=== PATIENT | female | born 1945 | race Caucasian/White ===

== ENCOUNTER 2019-06-12 13:41 | Outpatient (CLI) | payer MEDICARE, SELFPAY ==
--- NOTE | ~2019-06-12 | US_ITS ---
EXAMINATION: US renal BI EXAM DATE: 06/12/2019 14:50 INDICATION: Renal cancer 2014. Left nephrectomy. TECHNIQUE: Multiple grayscale and Doppler images of the kidneys were obtained (by a technologist who performed the scan) and subsequently reviewed. There is no prior study for comparison. FINDINGS: Right kidney: There is normal contour and echogenicity. It measures 9.6 x 4.5 x 5.0 centimeters. Th ere are no focal renal lesions identified. There is no hydronephrosis. Left kidney: Left renal fossa is unremarkable. Spleen normal in size.. Bladder unremarkable. IMPRESSION: 1. Unremarkable right kidney and bladder. 2. Unremarkable left renal fossa. Reviewed, dictated and finalized at location B. SEARCH SPECIALIST
== END 2019-06-12 13:42 | disposition home or self-care (01) ==
LOC: ANHIMG 13:43
PROVIDERS: PCP Internal Medicine; Visit Provider Internal Medicine
DX: R10.9 Unspecified abdominal pain (principal); R30.0 Dysuria
CPT/HCPCS: 76775

== ENCOUNTER 2019-06-17 08:57 | Outpatient (CLI) | payer MEDICARE, SELFPAY ==
--- NOTE | ~2019-06-17 | CT_ITS ---
EXAMINATION: CT abdomen pelvis w con DATE: 06/17/2019 09:35 INDICATION: Left renal cancer TECHNIQUE: Computed tomography (CT) of the abdomen and pelvis was performed with 100 cc Omnipaque 350 intravenous contrast. The dose-length product was 196.68 mGy-cm. Automated exposure control and iter ative reconstruction technique were employed. COMPARISON: CT dated 02/10/2018 FINDINGS: Lung bases are unremarkable. No pleural or pericardial effusion. Heart size normal. No sign ificant vascular abnormality. Moderate size hiatal hernia. No lymphadenopathy. The liver, spleen, pancreas, adrenal glands and right kidney are unremarkable. Status post left nephr ectomy. There is a small accessory splenule. Gallbladder is present. Nonobstructive bowel gas pattern . Moderate colonic fecal loading. Status post hysterectomy. No abnormal pelvic masses or fluid collec tions. Bladder is unremarkable. No osteolytic or osteoblastic lesions. There is degenerative retrolis thesis at L1-2. No acute osseous abnormality. IMPRESSION: 1. No acute abdominal abnormality. No evidence for metastatic disease. 2: Moderate sized hiatal hernia. Reviewed, dictated and finalized at location A. ICK BUILDER
--- NOTE | ~2019-06-17 | XR_ITS ---
EXAMINATION: XR chest 2V 06/17/2019 09:14 INDICATION: Ligament neoplasm of the left kidney PROCEDURE: 2 view chest COMPARISON: Comparison to multiple prior studies sequentially, with oldest reviewed study dated 01/23. FINDINGS: The lungs are clear. The cardiomediastinal silhouette is within normal limits. There are no pleural effusions. There is no pneumothorax suspected. IMPRESSION: 1: NO ACUTE CARDIOPULMONARY DISEASE. Reviewed, dictated and finalized at location A. R HEAD PEGGER
[2019-06-17 09:23] LABS: Blood Urea Nitrogen 18 mg/dL (8-26); Estimated Glomerular Filt Rate 44
== END 2019-06-17 08:58 | disposition home or self-care (01) ==
LOC: ANHIMG 08:59
PROVIDERS: PCP Internal Medicine; Visit Provider Urology
DX: C64.2 Malignant neoplasm of left kidney, except renal pelvis (principal); K44.9 Diaphragmatic hernia without obstruction or gangrene
CPT/HCPCS: 71046; 74177; Q9967

== ENCOUNTER 2020-01-14 01:34 | Outpatient (CLI) | payer MEDICARE, SELFPAY ==
[2020-01-14 16:17] LABS: SARS-CoV-2 RNA PCR Negative
== END 2020-01-14 01:35 | disposition home or self-care (01) ==
LOC: ANHCOVIDDT 01:34
PROVIDERS: PCP Internal Medicine; Visit Provider Internal Medicine Gastroenterology
DX: Z01.812 Encounter for preprocedural laboratory examination (principal); Z20.828 Contact with and (suspected) exposure to other viral communicable diseases
CPT/HCPCS: 87635; C9803; U0003

== ENCOUNTER 2020-01-16 00:22 | Day surgery (SDC) | payer MEDICARE, SELFPAY ==
[2020-01-09 10:07] VITALS: BMI 21.9
--- NOTE | 2020-01-16 07:17 | P.HP_ITS ---
History of Present Illness History of Present Illness Consent: Risks, benefits, and alternatives have been discussed and questions answered. Patient agrees to proceed with procedure. Chief complaint: Vomitting Narrative: Tara Mederos is a 74 year old W female referred for gastroscopy with possible esophageal dilatation secondary to intermittent dysphagia primarily with solid foods nausea occasional vomiting. She also has some regurgitation. These have been chronic symptoms. She has had esophageal dilatation in the past. Her last gastroscopy was 2 years ago but no dilatation at that time. She has had no associated weight loss. No fever chills or sweats. She is on no anticoagulation. Patient also had a colonoscopy 2 years ago small benign adenomatous polyp was removed. [facility] Family History Family History Mother Family history of Alzheimer's disease Father Family history of emphysema Family history of congestive heart failure Family history of heart disease in male family member before age 55 Patient's father is Asthma, Onset Age: 82 Sibling Patient's sister is in good health Other Family history of malignant neoplasm of breast Hypertension Social History Social History Smoking status: Never smoker Second hand tobacco smoke exposure: No Alcohol intake: current Substance use: never Meds Home Medications and Allergies Home Medications Medication Instructions Recorded Confirmed Type fluticasone propionate 50 2 spray NASAL DAILY #18.2 ml 09/30/19 01/09/20 Rx mcg/actuation nasal spray,suspension albuterol sulfate 90 mcg/actuation 1 inhalation INHALATION Q4-6H PRN 11/07/19 01/09/20 Rx aerosol inhaler #8.5 gm pantoprazole 40 mg tablet,delayed 40 mg PO QAM #90 tablet 12/06/19 01/09/20 Rx release budesonide-formoterol [Symbicort] 2 puff INHALATION Q12H PRN 01/09/20 01/09/20 History Allergies Allergy/AdvReac Type Severity Reaction Status Date / Time No Known Allergies Allergy Verified 01/09/20 10:05 Exam Const: Orientation/consciousness: patient oriented x3 Resp: Auscultation: clear to auscultation bilaterally Cardio: Rate: regular rate Rhythm: regular rhythm Heart sounds: no murmurs GI: GI Palp: Yes Soft to palpation, No Tenderness to palpation present (GI), Yes No hepatosplenomegaly present and No Palpable mass present Auscultation: normal bowel sounds Neuro: General: patient oriented x3 and no focal motor deficits Extrem: General: no pedal edema Assessment and Plan Additional Plan EGD possible esophageal dilatation for evaluation of dysphagia intermittent nausea vomiting
[2020-01-16] MEDS: LACTATED RINGERS 1,000 ML 30 ML IV CONT (07:18)
[2020-01-16] MEDS: ONDANSETRON INJ 4 MG/2 ML VIAL IV PUSH (07:24)
[2020-01-16 07:26] VITALS: BP 120/73; PULSE 81; RESP 18; TEMP 37.2; O2SAT 100
--- NOTE | 2020-01-16 07:30 | WPDANESEPPF ---
Anes - Initial Pre Proc Eval Procedure: Operation Date: 01/16/20 08:00 Proposed Procedures p Esophagogastroduodenoscopy - Nuno Gagnon MD Date/Time: 01/16/20 07:30 Surgeon: Nuno Gagnon MD Pre Op Diagnosis: Vomitting Patient Data Age: 74 Gender: F Height: 5 ft 2 in Weight: 54.5 kg Allergies Allergy/AdvReac Type Severity Reaction Status Date / Time No Known Allergies Allergy Verified 01/16/20 07:25 Home Medications Medication Instructions Recorded Confirmed Type fluticasone propionate 50 2 spray NASAL DAILY #18.2 ml 09/30/19 01/16/20 Rx mcg/actuation nasal spray,suspension albuterol sulfate 90 mcg/actuation 1 inhalation INHALATION Q4-6H PRN 11/07/19 01/16/20 Rx aerosol inhaler #8.5 gm pantoprazole 40 mg tablet,delayed 40 mg PO QAM #90 tablet 12/06/19 01/16/20 Rx release budesonide-formoterol [Symbicort] 2 puff INHALATION Q12H PRN 01/09/20 01/16/20 History Patient hx anesthesia problems: none Family hx anesthesia problems: none PMFSH Past Medical History Medical History (Updated 01/16/20 @ 07:32 by Trung Tillman MD) Anxiety disorder, unspecified Asthma GERD (gastroesophageal reflux disease) Hx of renal cell cancer SOHA (obstructive sleep apnea) Family History Family History Mother Family history of Alzheimer's disease Father Family history of emphysema Family history of congestive heart failure Family history of heart disease in male family member before age 55 Patient's father is Asthma, Onset Age: 82 Sibling Patient's sister is in good health Other Family history of malignant neoplasm of breast Hypertension Social History Social History Smoking status: Never smoker Second hand tobacco smoke exposure: No Alcohol intake: current Substance use: never Anes - Eval Final PreProcedure Day of Procedure 01/16/20 07:30 Patient weight: normal Heart: regular rate and rhythm Lungs: clear to auscultation Airway: Mallampati scale class II Neurological: alert and oriented Last oral intake: >/= 8 hours ASA classification: III Emergent: no Anesthetic plan: proceed Anesthesia type and monitoring: general GIVS and standard monitoring Informed Consent: The patient's anesthetic plan and its attendant risks and benefits were discussed with the patient/family/POA. Questions were solicited and answers provided to the satisfaction of the patient/family/POA.
--- NOTE | 2020-01-16 07:31 | SUR.PREOP ---
IV CHARTED WRONG SITE RIGHT HAND, INSERTED R-FOREARM
[2020-01-16 08:10] VITALS: BP 93/60; PULSE 81; RESP 26; O2SAT 96
[2020-01-16 08:20] VITALS: BP 106/73; PULSE 75; RESP 23; O2SAT 100
[2020-01-16 08:30] VITALS: BP 122/99; PULSE 67; RESP 18; O2SAT 100
== END 2020-01-16 08:53 | disposition home or self-care (01) ==
PROVIDERS: PCP Internal Medicine; Visit Provider Internal Medicine Gastroenterology
PROC: 0DJ08ZZ Inspection of Upper Intestinal Tract, Via Natural or Artificial Opening Endoscopic (ICD-10-PCS; CPT 43235; principal; 2020-01-16 08:00)
DX: K22.2 Esophageal obstruction (principal); K44.9 Diaphragmatic hernia without obstruction or gangrene; K21.9 Gastro-esophageal reflux disease without esophagitis; G47.33 Obstructive sleep apnea (adult) (pediatric); J45.909 Unspecified asthma, uncomplicated; F41.9 Anxiety disorder, unspecified
CPT/HCPCS: 43249; 43239; 87081; 88305; C1726; J2405; J7120

== ENCOUNTER 2020-06-06 12:31 | Outpatient (CLI) | payer MEDICARE, SELFPAY ==
--- NOTE | ~2020-06-06 | US_ITS ---
EXAMINATION: US carotid duplex BI EXAM DATE: 06/06/2020 13:01 INDICATION: R42 - Dizziness and giddiness dizziness. TECHNIQUE: Grayscale, color and pulsed Doppler images of the cervical carotid arteries were obtained . The degree of vessel stenosis is placed in one of the following categories: normal, <50% stenosis, 50-69% stenosis, >=70% stenosis but less than near-occlusion, near-occlusion, or occlusion. Note that percent stenosis relative to normal distal artery lumen diameter is indirectly measured from velocit y measurements as described by Yaw, et al. Radiology 2003; 229:340-346. There is no prior study fo r comparison. FINDINGS: RIGHT SIDE: Right common carotid artery peak systolic velocity (PSV in cm/s): 57 Right bulb/internal carotid artery peak systolic velocity (PSV in cm/s): 45 Right internal carotid artery end diastolic velocity (EDV in cm/s): 23 Right ICA/CCA peak systolic ratio: 0.8 Right external carotid artery peak systolic velocity (PSV in cm/s): 61 Right vertebral artery antegrade flow: yes There is minimal carotid bulb plaque. Velocity and Doppler waveforms in the common and internal carotid arteries is normal. LEFT SIDE: Left common carotid artery peak systolic velocity (PSV in cm/s): 78 Left bulb/internal carotid artery peak systolic velocity (PSV in cm/s): 73 Left internal carotid artery end diastolic velocity (EDV in cm/s): 33 Left ICA/CCA peak systolic ratio: 0.4 Left external carotid artery peak systolic velocity (PSV in cm/s): 36 Left vertebral artery antegrade flow: yes There is no focal plaque identified. IMPRESSION: 1. Less than 50 percent stenosis in the right internal carotid artery. 2. Normal left internal carotid artery. Reviewed, dictated and finalized at location A. ITE WORKER
== END 2020-06-06 12:32 | disposition home or self-care (01) ==
PROVIDERS: Family Provider Internal Medicine; PCP Internal Medicine; Visit Provider Internal Medicine
DX: R42 Dizziness and giddiness (principal); I65.21 Occlusion and stenosis of right carotid artery
CPT/HCPCS: 93880

== ENCOUNTER 2020-06-09 10:30 | Outpatient (CLI) | payer MEDICARE, SELFPAY ==
--- NOTE | ~2020-06-09 | XR_ITS ---
EXAMINATION: XR chest 2V EXAM DATE: 06/09/2020 11:02 INDICATION: Malignant neoplasm of LT kidney, except renal pelvis. TECHNIQUE: Frontal and lateral projections of the chest obtained and reviewed. Comparison is made to prior examination from 06/17/2019. FINDINGS: Moderate to severe chronic hyperinflation. No confluent consolidation, pneumothorax or ple ural effusion suspected. Cardiomediastinal silhouette is normal. There are no osteoblastic or osteoly tic lesions identified. Several retroperitoneal surgical clips. IMPRESSION: Hyperinflation. Reviewed, dictated and finalized at location A. E MAKER IMPRESSION: Hyperinflation.
--- NOTE | ~2020-06-09 | CT_ITS ---
EXAMINATION: CT abdomen pelvis wo/w con DATE: 06/09/2020 11:18 INDICATION: Malignant neoplasm of the left kidney. TECHNIQUE: Computed tomography (CT) of the abdomen and pelvis was performed without and with 100 mL O mnipaque-350 intravenous contrast utilizing a standard renal mass protocol. Automated exposure contro l and iterative reconstruction technique were employed. The dose-length product was 363.65 mGy-cm. COMPARISON: 06/17/2019 FINDINGS: Unchanged likely benign 4-5 mm subpleural nodule in the left lower lobe. Heart size is normal. No per icardial or pleural effusion. Moderate-sized sliding-type hiatal hernia. Liver, gallbladder, pancreas and bilateral adrenal glands are normal. Splenic calcifications consistent with old granulomatous di sease. Unchanged small splenule along the posterior medial margin of the spleen which can be seen lauren ing back to 02/27/2015 and slightly more posterior position prior to the left nephrectomy on study da yash 09/04/2008. Right kidney is normal with no urolithiasis or hydronephrosis. Status post left nephre ctomy with no evident residual/recurrent neoplasm. There is possible wall thickening along the sigmoi d colon although appearance may be artifact of decompressed state. No bowel obstruction. Bladder is n ormal. The uterus is not identified and has likely been surgically resected. No free intraperitoneal gas or fluid. No pathologically enlarged abdominal or pelvic lymphadenopathy. Mild lumbar spondylosis . IMPRESSION: 1. Status post left nephrectomy. No evident residual, recurrent or metastatic disease. 2. Moderate-sized sliding-type hiatal hernia. 3. Possible wall thickening in the sigmoid colon. This could be artifactual appearance due to decompr essed state although could not exclude a distal colitis which could be infectious, inflammatory or le ss likely ischemic in etiology. Reviewed, dictated and finalized at location B. T WORKER IMPRESSION: 1. Status post left nephrectomy. No evident residual, recurrent or metastatic d isease. 2. Moderate-sized sliding-type hiatal hernia. 3. Possible wall thickening in the sigmoid colon. This could be artifactual deny earance due to decompressed state although could not exclude a distal colitis w hich could be infectious, inflammatory or less likely ischemic in etiology.
[2020-06-09 11:12] LABS: Estimated Glomerular Filt Rate 49
== END 2020-06-09 10:31 | disposition home or self-care (01) ==
PROVIDERS: Family Provider Internal Medicine; PCP Internal Medicine; Visit Provider Urology
DX: C64.2 Malignant neoplasm of left kidney, except renal pelvis (principal); R35.1 Nocturia; K44.9 Diaphragmatic hernia without obstruction or gangrene
CPT/HCPCS: 71046; 74178; Q9967

== ENCOUNTER → 2020-07-12 02:44 | Outpatient (CLI) | payer MEDICARE, SELFPAY ==
[2020-07-12 19:42] LABS: SARS-CoV-2 RNA PCR Negative
== END ==
PROVIDERS: PCP Internal Medicine; Visit Provider Internal Medicine Gastroenterology
DX: Z01.812 Encounter for preprocedural laboratory examination (principal); Z20.822 Contact with and (suspected) exposure to COVID-19
CPT/HCPCS: C9803; U0003; U0005

== ENCOUNTER 2020-07-15 02:44 | Day surgery (SDC) | payer MEDICARE, SELFPAY ==
[2020-07-07 13:59] VITALS: BMI 23.1
[2020-07-15 07:20] VITALS: BP 126/76; PULSE 81; RESP 16; TEMP 36.6; O2SAT 100; BMI 22.3
[2020-07-15] MEDS: LACTATED RINGERS 1,000 ML 150 ML IV CONT (07:46)
--- NOTE | 2020-07-15 07:48 | PM.HPGS ---
History of Present Illness History of Present Illness Consent: Risks, benefits, and alternatives have been discussed and questions answered. Patient agrees to proceed with procedure. Chief complaint: gastroenteritis Narrative: Tara Mederos is a 75 year old female With an abnormal CT scan suggestive of colitis. She has had a change in bowel habits. For the past several months she has discomfort with bowel movements and frequent loose stools. PMFSH Past Medical History Medical History Anxiety disorder, unspecified Asthma GERD (gastroesophageal reflux disease) Hx of renal cell cancer SOHA (obstructive sleep apnea) Family History Family History Mother Family history of Alzheimer's disease Father Family history of emphysema Family history of congestive heart failure Family history of heart disease in male family member before age 55 Patient's father is Asthma, Onset Age: 82 Sibling Lung cancer Other Family history of malignant neoplasm of breast Hypertension Social History Social History Smoking status: Never smoker Second hand tobacco smoke exposure: No Alcohol intake: current Drinks per week: 2 Substance use: never Substance use type: does not use Living arrangements: alone Spiritual care concerns: No Meds Home Medications and Allergies Home Medications Medication Instructions Recorded Confirmed Type fluticasone propionate 50 2 spray NASAL DAILY #18.2 ml 09/30/19 07/07/20 Rx mcg/actuation nasal spray,suspension albuterol sulfate 90 mcg/actuation 1 inhalation INHALATION Q4-6H PRN 11/07/19 07/07/20 Rx aerosol inhaler #8.5 gm pantoprazole 40 mg tablet,delayed 40 mg PO QAM #90 tablet 12/06/19 07/07/20 Rx release budesonide-formoterol [Symbicort] 2 puff INHALATION Q12H PRN 01/09/20 07/07/20 History lorazepam 0.5 mg tablet 0.5 mg PO BID PRN #30 tablet 06/13/20 07/07/20 Rx sodium,potassium,mag sulfates 17.5 See Rx Instructions PO .COMPLEX 07/04/20 07/07/20 Rx gram-3.13 gram-1.6 gram oral soln #354 ml citalopram [Celexa] 10 mg PO DAILY 07/07/20 07/07/20 History triamcinolone acetonide [Triderm] 1 applic TOPICAL BID 07/07/20 07/07/20 History Allergies Allergy/AdvReac Type Severity Reaction Status Date / Time No Known Allergies Allergy Verified 07/15/20 07:31 Vital Signs Vital Signs - 24 hr 07/15/20 07:20 Temperature 36.6 C Pulse Rate 81 Respiratory Rate 16 Blood Pressure 126/76 Pulse Oximetry 100 Exam Resp: Auscultation: clear to auscultation bilaterally Cardio: Rate: regular rate Rhythm: regular rhythm GI: GI Palp: Yes Soft to palpation and No Tenderness to palpation present (GI) Assessment and Plan Assessment and plan (1) Change in bowel habits: Code(s): R19.4 - Change in bowel habit Status: Acute Assessment and Plan: Colonoscopy with possible biopsy or polypectomy or cautery or injection of substances.
--- NOTE | 2020-07-15 08:11 | WPDANESEPPF ---
Anes - Initial Pre Proc Eval Procedure: Operation Date: 07/15/20 08:30 Proposed Procedures p Colonoscopy - Jacinto Jacobsen MD Date/Time: 07/15/20 08:11 Surgeon: Jacinto Jacobsen MD Pre Op Diagnosis: gastroenteritis Patient Data Age: 75 Gender: F Height: 5 ft Weight: 51.8 kg Last Vital Signs Temp 98 F 07/15/20 07:20 Pulse 81 07/15/20 07:20 Resp 16 07/15/20 07:20 BP 126/76 07/15/20 07:20 Pulse Ox 100 07/15/20 07:20 Allergies Allergy/AdvReac Type Severity Reaction Status Date / Time No Known Allergies Allergy Verified 07/15/20 07:31 Home Medications Medication Instructions Recorded Confirmed Type fluticasone propionate 50 2 spray NASAL DAILY #18.2 ml 09/30/19 07/07/20 Rx mcg/actuation nasal spray,suspension albuterol sulfate 90 mcg/actuation 1 inhalation INHALATION Q4-6H PRN 11/07/19 07/07/20 Rx aerosol inhaler #8.5 gm pantoprazole 40 mg tablet,delayed 40 mg PO QAM #90 tablet 12/06/19 07/07/20 Rx release budesonide-formoterol [Symbicort] 2 puff INHALATION Q12H PRN 01/09/20 07/07/20 History lorazepam 0.5 mg tablet 0.5 mg PO BID PRN #30 tablet 06/13/20 07/07/20 Rx sodium,potassium,mag sulfates 17.5 See Rx Instructions PO .COMPLEX 07/04/20 07/07/20 Rx gram-3.13 gram-1.6 gram oral soln #354 ml citalopram [Celexa] 10 mg PO DAILY 07/07/20 07/07/20 History triamcinolone acetonide [Triderm] 1 applic TOPICAL BID 07/07/20 07/07/20 History Patient hx anesthesia problems: none Family hx anesthesia problems: none PMFSH Past Medical History Medical History Anxiety disorder, unspecified Asthma GERD (gastroesophageal reflux disease) Hx of renal cell cancer SOHA (obstructive sleep apnea) Family History Family History Mother Family history of Alzheimer's disease Father Family history of emphysema Family history of congestive heart failure Family history of heart disease in male family member before age 55 Patient's father is Asthma, Onset Age: 82 Sibling Lung cancer Other Family history of malignant neoplasm of breast Hypertension Social History Social History Smoking status: Never smoker Second hand tobacco smoke exposure: No Alcohol intake: current Drinks per week: 2 Substance use: never Substance use type: does not use Living arrangements: alone Spiritual care concerns: No Anes - Eval Final PreProcedure Day of Procedure 07/15/20 08:11 Patient weight: normal Heart: regular rate and rhythm Lungs: clear to auscultation Airway: Mallampati scale class II Neurological: alert and oriented Last oral intake: >/= 8 hours ASA classification: III Emergent: no Anesthetic plan: proceed Anesthesia type and monitoring: general GIVS and standard monitoring Informed Consent: The patient's anesthetic plan and its attendant risks and benefits were discussed with the patient/family/POA. Questions were solicited and answers provided to the satisfaction of the patient/family/POA.
[2020-07-15 09:44] VITALS: BP 90/59; PULSE 80; RESP 19; O2SAT 100
[2020-07-15 09:54] VITALS: BP 92/54; PULSE 87; RESP 22; O2SAT 99
[2020-07-15 10:04] VITALS: BP 101/69; PULSE 76; RESP 19; O2SAT 99
== END 2020-07-15 09:25 | disposition home or self-care (01) ==
PROVIDERS: PCP Internal Medicine; Visit Provider Internal Medicine Gastroenterology
PROC: 0DJD8ZZ Inspection of Lower Intestinal Tract, Via Natural or Artificial Opening Endoscopic (ICD-10-PCS; CPT 45378; principal; 2020-07-15 08:30)
DX: R19.4 Change in bowel habit (principal); R93.3 Abnormal findings on diagnostic imaging of other parts of digestive tract; J45.909 Unspecified asthma, uncomplicated; G47.33 Obstructive sleep apnea (adult) (pediatric); K21.9 Gastro-esophageal reflux disease without esophagitis; F41.9 Anxiety disorder, unspecified; Z85.528 Personal history of other malignant neoplasm of kidney
CPT/HCPCS: 45378; C9803; J2704; J7120; U0003; U0005

== ENCOUNTER 2020-07-28 14:14 | Outpatient (CLI) | payer MEDICARE, SELFPAY | END 2020-07-28 14:15 | disposition home or self-care (01) | LOC: ANHCOVIDVC 14:15 | PROVIDERS: PCP Internal Medicine | DX: Z23 Encounter for immunization (principal) | CPT/HCPCS: 0001A; 91300 ==

== ENCOUNTER 2020-08-18 14:14 | Outpatient (CLI) | payer MEDICARE, SELFPAY | END 2020-08-18 14:15 | disposition home or self-care (01) | LOC: ANHCOVIDVC 14:14 | PROVIDERS: PCP Internal Medicine | DX: Z23 Encounter for immunization (principal) | CPT/HCPCS: 0002A; 91300 ==

== ENCOUNTER 2020-11-17 14:41 | Emergency (ER) | payer MEDICARE, SELFPAY ==
[2020-11-17 14:45] VITALS: BP 113/80; PULSE 101; RESP 17; TEMP 36.3; O2SAT 99
--- NOTE | 2020-11-17 15:15 | ED.URI ---
HPI - URI/Sore Throat General Chief Complaint: Upper Respiratory Infection Stated Complaint: sinus infection Time Seen by Provider: 11/17/20 15:16 Source: patient Mode of arrival: ambulatory Limitations: no limitations History of Present Illness HPI Narrative: Tara Mederos is a 75 yo female with prior medical history of new onset COPD, severe GERD, sleep apnea, who comes with severe sinus congestion and complaining of headache x 6 days.. She reports having a temperature of 100.2 on Tuesday and not feeling very well yesterday says she is feeling a little better today as she still has burning and congestion in her frontal and ethmoid sinuses. She also has a dry cough; discussed whether the cough was a result of her sinuses or because of her GERD as she states that her Protonix does not control her GERD very well. She has used [id number] NyQuil to help her sleep at night. She is supposed to be using CPAP also She has been prescribed Symbicort because of low PFTs which she is not taking; she also does not use albuterol inhalers Related Data Home Medications Medication Instructions Recorded Confirmed triamcinolone acetonide [Triderm] 1 applic TOPICAL BID 07/07/20 11/17/20 Allergies Allergy/AdvReac Type Severity Reaction Status Date / Time No Known Allergies Allergy Verified 11/17/20 14:46 Review of Systems Review of Systems: Narrative: CONSTITUTIONAL: Denies fever, chills, sweats. EYES: Denies visual changes, redness, discharge. ENT: Denies rhinorrhea, has congestion, sinus pain ,sore throat, otalgia. CARDIOVASCULAR: Denies chest pain, palpitations, edema. RESPIRATORY: Denies dyspnea, wheezing, cough GASTROINTESTINAL: Denies abdominal pain, nausea, vomiting, diarrhea. GENITOURINARY: Denies dysuria, hematuria, abnormal discharge SKIN: Denies rash or itching. NEUROLOGIC: Denies numbness, or focal weakness. PSYCHIATRIC: Denies anxiety or depression. [facility] Past Medical History Medical History Anxiety disorder, unspecified Asthma GERD (gastroesophageal reflux disease) Hx of renal cell cancer SOHA (obstructive sleep apnea) Family History Family History Mother Family history of Alzheimer's disease Father Family history of emphysema Family history of congestive heart failure Family history of heart disease in male family member before age 55 Patient's father is Asthma, Onset Age: 82 Sibling Lung cancer Other Family history of malignant neoplasm of breast Hypertension Social History Social History Smoking status: Never smoker Second hand tobacco smoke exposure: No Alcohol intake: current Drinks per week: 2 Substance use: never Substance use type: does not use Gender identity (if verbalized by the patient): Female Spiritual care concerns: No Comments At time of signature, I agree with nursing past medical, surgical, social and family history. There is no relevant family history pertinent to the presenting complaint. Exam Narrative: Exam Narrative: GENERAL: This is a well-nourished, well-developed patient, in mild distress. HEAD: normocephalic, atraumatic. EYES: Sclera clear/white. Vision is grossly intact. EARS: External ears normal, auditory canals clear and without drainage, TMs normal without perforation. Hearing grossly intact. NOSE: External nose normal without nasal discharge, nares with redness, no rhinorrhea. THROAT: Mucous membranes moist, posterior pharynx mild erythema NECK: Neck supple, non-tender CARDIOVASCULAR: Regular rate and rhythm without murmurs, gallops, or rubs. RESPIRATORY: Clear to auscultation. Breath sounds equal bilaterally. No wheezes, rales, or rhonchi. GASTROINTESTINAL: Abdomen soft, SKIN: warm, intact with no suspicious lesions or rash, good texture and turg
== END 2020-11-17 15:35 | disposition home or self-care (01) ==
PROVIDERS: Emergency Provider Nurse Practitioner; PCP Internal Medicine
DX: J01.10 Acute frontal sinusitis, unspecified (principal); J45.909 Unspecified asthma, uncomplicated; K21.9 Gastro-esophageal reflux disease without esophagitis; G47.33 Obstructive sleep apnea (adult) (pediatric); Z85.528 Personal history of other malignant neoplasm of kidney
CPT/HCPCS: 99213; G0463

== ENCOUNTER 2020-12-01 06:57 | Outpatient (CLI) | payer MEDICARE, SELFPAY ==
--- NOTE | ~2020-12-01 | CT_ITS ---
EXAMINATION: CT abdomen pelvis w con DATE: 12/01/2020 07:33 INDICATION: Right pyelonephritis. Nausea. TECHNIQUE: Computed tomography (CT) of the abdomen and pelvis was performed with 100 cc Omnipaque 350 intravenous contrast. Automated exposure control and iterative reconstruction technique were employe d. Exam dose: 217.81 mGy-cm total exam DLP. COMPARISON: 06/09/2020 CT abdomen pelvis 12/01/2020 KUB FINDINGS: Left lower lobe calcified pulmonary granuloma. The lung bases are clear of consolidation. Normal heart size. No pericardial or pleural effusion. Moderate hiatal hernia. The gallbladder is present, without gallbladder wall thickening or pericholecystic fluid or fat stran ding. No hepatic, splenic, pancreatic space-occupying mass lesion. No bile duct or pancreatic duct dilatati on. No adrenal mass lesion. Status post left nephrectomy. No right renal mass lesion or urinary tract calculus or hydroureteronephrosis. The urinary bladder ap pears unremarkable. Status post hysterectomy. There is atherosclerotic calcification of the abdominal aorta but no aneurysm. No intraperitoneal or retroperitoneal or pelvic mass lesion or adenopathy or ascites. No bowel obstruction or intraperitoneal free air. Mild to moderate anterior wedge compression fracture deformity of T12 since 06/09/2020. Diffuse osteop enia. IMPRESSION: New mild to moderate anterior wedge compression fracture deformity of T12 since Moderate hiatal hernia Status post left nephrectomy Reviewed, dictated and finalized at Location A. Reviewed, dictated and finalized at location A. IMPRESSION: New mild to moderate anterior wedge compression fracture deformity of T12 since 06/09/2020 Moderate hiatal hernia Status post left nephrectomy
--- NOTE | ~2020-12-01 | XR_ITS ---
EXAMINATION: XR abdomen/kub 1V INDICATION: Right flank pain TECHNIQUE: Supine views of the abdomen were obtained on 2 radiographs. COMPARISON: CT from today FINDINGS: There are surgical changes of left nephrectomy. Phleboliths are noted in the pelvis. No uro lithiasis is identified. There is mild osteoarthritis of the hips. A large volume of colonic stool is present. The visualized lung bases are clear. IMPRESSION: 1. No urolithiasis identified. Reviewed, dictated and finalized at location B.
[2020-12-01 07:24] LABS: Estimated Glomerular Filt Rate 40
== END 2020-12-01 06:58 | disposition home or self-care (01) ==
LOC: ANHIMG 06:59
PROVIDERS: PCP Internal Medicine; Visit Provider Nurse Practitioner Adult Health
DX: N12 Tubulo-interstitial nephritis, not specified as acute or chronic (principal); K44.9 Diaphragmatic hernia without obstruction or gangrene; S22.080A Wedge compression fracture of T11-T12 vertebra, initial encounter for closed fracture; X58.XXXA Exposure to other specified factors, initial encounter
CPT/HCPCS: 74018; 74177; Q9967

== ENCOUNTER 2020-12-24 08:00 | Outpatient (CLI) | payer MEDICARE, SELFPAY ==
--- NOTE | ~2020-12-24 | CT_ITS ---
EXAMINATION: CT diagnostic chest wo con DATE: 12/24/2020 08:25 INDICATION: Solitary pulmonary nodule TECHNIQUE: Computed tomography (CT) of the chest was performed without intravenous contrast. The dose -length product (DLP) was 56.87 mGy-cm. Automated exposure control and iterative reconstruction techn ique were employed. COMPARISON: 12/01/2020, 06/09/2020, 06/17/2019, 02/10/2018 FINDINGS: There is a stable 5 mm nodule of the left lower lobe. No new or suspicious pulmonary nodule is identified. There is mild dependent atelectasis. The lungs are free of acute opacities. An area o f chronic scarring is present in the. No pathologically enlarged thoracic lymph nodes are identified. The heart size is normal. There is no pleural effusion or pneumothorax. There is a moderate-sized sl iding hiatal hernia. Punctate calcifications in an otherwise normal spleen likely represent healed gr anulomatous disease. There is a stable T12 compression fracture. IMPRESSION: 1. Stable 5 mm nodule of the left lower lobe, consistent with old granulomatous disease. No new or soria spicious pulmonary nodules identified. Reviewed, dictated and finalized at location B. IMPRESSION: 1. Stable 5 mm nodule of the left lower lobe, consistent with old granulomatous disease. No new or suspicious pulmonary nodules identified.
== END 2020-12-24 08:01 | disposition home or self-care (01) ==
LOC: ANHIMG 08:07
PROVIDERS: PCP Internal Medicine; Visit Provider Internal Medicine
DX: R91.1 Solitary pulmonary nodule (principal)
CPT/HCPCS: 71250

== ENCOUNTER 2020-12-31 07:29 | Outpatient (CLI) | payer MEDICARE, SELFPAY ==
--- NOTE | ~2020-12-31 | MR_ITS ---
EXAMINATION: MR lumbar spine wo con DATE: 12/31/2020 08:18 INDICATION: Lumbago. TECHNIQUE: Magnetic resonance imaging (MRI) of the lumbar spine was performed without intravenous con trast. Sequences included sagittal T2-weighted FSE, sagittal T2-weighted FS FSE, sagittal T1-weighted FSE, and axial T2-weighted FSE. COMPARISON: Lumbar spine MRI 02/21/2016, CT abdomen and pelvis 12/01/2020 FINDINGS: There is 3 mm retrolisthesis of L1 on L2 and L2 on L3. There is a compression fracture of s uperior endplate of T12 with 1/5 loss of height and bone marrow edema. There is moderately decreased disc height at L1-L2 with endplate remodeling. The distal spinal cord signal intensity is normal. The conus medullaris is at L1. There are changes of left nephrectomy. The following disc levels are spec ifically discussed: L1-L2: The disc is bulging with superimposed left central extrusion. There is no facet joint osteoart hritis. There is mild bilateral neural foraminal stenosis. There is mild central canal stenosis. L2-L3: The disc is bulging and has an annular fissure. There is mild bilateral facet joint osteoarthr itis. There is moderate bilateral neural foraminal stenosis. There is mild central canal stenosis. L3-L4: The disc is bulging. There is severe bilateral facet joint osteoarthritis. There is mild bilat eral neural foraminal stenosis. There is mild central canal stenosis. L4-L5: The disc is bulging. There is severe right and moderate left facet joint osteoarthritis. There is mild right and moderate left neural foraminal stenosis. There is mild central canal stenosis. L5-S1: The disc is bulging. There is moderate bilateral facet joint osteoarthritis. There is mild aletha ateral neural foraminal stenosis. There is mild central canal stenosis. IMPRESSION: 1. Subacute T12 compression fracture, stable from 12/24/2020. 2. Moderate lumbar spondylosis, worsened from 02/21/2016. Reviewed, dictated and finalized at location B.
== END 2020-12-31 07:30 | disposition home or self-care (01) ==
PROVIDERS: PCP Internal Medicine; Visit Provider Nurse Practitioner Family
DX: M47.896 Other spondylosis, lumbar region (principal); S22.080D Wedge compression fracture of T11-T12 vertebra, subsequent encounter for fracture with routine healing; X58.XXXD Exposure to other specified factors, subsequent encounter
CPT/HCPCS: 72148

== ENCOUNTER 2021-04-01 08:55 | Outpatient (CLI) | payer MEDICARE, SELFPAY ==
--- NOTE | ~2021-04-01 | DEXA_ITS ---
Bone Density Report Name: Tara Mederos Age: 75 Sex: Female Ethnicity: White Date of : 1945 Indication: postmenopausal; height loss; prior fracture; cancer; asthma or emphysema; hysterectomy; Referring Provider: Bruno Espinoza Study: Bone densitometry was performed. Exam Date: April 01, 2021 Accession number: [id number] Bone Density: Region BMD T-score Z-score Classification AP Spine (L1-L4) 0.726 -2.9 -0.6 Osteoporosis Femoral Neck (Left) 0.593 -2.3 -0.3 Osteopenia Total Hip (Left) 0.628 -2.6 -0.9 Osteoporosis Total Hip Bilateral Avg 0.670 -2.2 -0.5 Osteopenia Femoral Neck (Right) 0.628 -2.0 0.0 Osteopenia Total Hip (Right) 0.710 -1.9 -0.2 Osteopenia World Health Organization criteria for BMD impression classify patients as: Normal (T-score at or above -1.0), Osteopenia (T-score between -1.0 and -2.5), or Osteoporosis (T-score at or below -2.5). 10-year Fracture Risk: FRAX not reported because: Some T-score for Spine Total or Hip Total or Femoral Neck at or below -2.5 Prior hip or vertebral fracture Treated for osteopor Clinical Information Provided by Patient: Have had a previous hip or vertebral fracture Has had a low trauma fracture Is being treated for osteoporosis Has used the following medications: Fosamax (i.e. alendronate) Has the following medical conditions: Asthma or Emphysema, Cancer, Hysterectomy Patient maximum height was 63 Menopause Age: 52 No regular weight bearing exercise Drinks caffeinated beverages Onset of menses at age 14 Number of children 2 Impression: The patient has established osteoporosis, based on the Total Spine T-score and the existence of a prior fracture. The patient has risk factors, including: previous fracture. Discussion: It is important to ask patients whether they are taking their medications and to encourage continued and appropriate compliance with their osteoporosis therapies to reduce fracture risk. It is also important to review their risk factors and encourage appropriate calcium and vitamin D intakes, exercise, fall prevention and other lifestyle measures. Follow-Up: Consider a repeat BMD and Vertebral Fracture Assessment (VFA) exam in 2 years or sooner if medically necessary, to reassess this patient's status. Reported by: [facility] on 04/01/2021 9:22:00 AM. Reviewed, dictated and finalized at location AJames NOGUEIRA
== END 2021-04-01 08:56 | disposition home or self-care (01) ==
LOC: ANHIMG 08:56
PROVIDERS: PCP Internal Medicine; Visit Provider Physician Assistant
DX: S22.080A Wedge compression fracture of T11-T12 vertebra, initial encounter for closed fracture (principal); X58.XXXA Exposure to other specified factors, initial encounter; M81.0 Age-related osteoporosis without current pathological fracture; M85.852 Other specified disorders of bone density and structure, left thigh; M85.851 Other specified disorders of bone density and structure, right thigh
CPT/HCPCS: 77080

== ENCOUNTER 2021-06-01 10:35 | Emergency (ER) | payer MEDICARE, SELFPAY ==
[2021-06-01 11:09] VITALS: BP 97/74; PULSE 104; RESP 18; TEMP 36.5; O2SAT 98
--- NOTE | 2021-06-01 11:38 | ED.URI ---
HPI - URI/Sore Throat General Chief Complaint: Upper Respiratory Infection Stated Complaint: sorethroat,fatigue Time Seen by Provider: 06/01/21 11:41 Source: patient, RN notes reviewed and old records reviewed Mode of arrival: ambulatory Limitations: no limitations History of Present Illness HPI Narrative: 76-year-old female who presents to [facility] with complaints of sore throat, some shortness of breath and fatigue which started about a week ago week. Patient states she was tested on Tuesday and was negative. Patient reports that she has cough which is worse at night and feels really weak, achy all over and reports that she is fatigued. Patient states that she has had Covid and flu vaccinations. She reports that boyfriend tested positive for Covid last week. MD elicited complaint: sore throat and other (some shortness of breath and fatigue) Related Data Allergies Allergy/AdvReac Type Severity Reaction Status Date / Time No Known Allergies Allergy Verified 04/20/21 14:50 Review of Systems Review of Systems: CONSTITUTIONAL: Positive for intermittent fever, chills, or sweats. EYES: Denies visual changes, redness, or discharge. ENT: Denies rhinorrhea, congestion, positive sore throat, no otalgia. CARDIOVASCULAR: Denies chest pain, palpitations, or edema. RESPIRATORY: Positive for cough some dyspnea. GASTROINTESTINAL: Denies abdominal pain, nausea, vomiting, or diarrhea. GENITOURINARY: Denies dysuria or hematuria. SKIN: Denies rash or itching. MUSCULOSKELETAL: Reports back pain, joint pain, body aches NEUROLOGIC: Denies headache, numbness, or weakness. PSYCHIATRIC: Denies anxiety or depression. All systems reviewed & are unremarkable except as noted in HPI and below PMFSH Past Medical History Medical History (Updated 06/01/21 @ 12:11 by Fanny Yang NP) Anxiety disorder, unspecified Asthma Femur open fracture, left monet GERD (gastroesophageal reflux disease) Hx of renal cell cancer SOHA (obstructive sleep apnea) Right wrist fracture ORIF plates and screws Surgical History Surgical History (Updated 06/01/21 @ 12:12 by Fanny Yang NP) H/O partial thyroidectomy History of kidney removal left renal cancer History of vertebroplasty T12 Family History Family History Mother Family history of Alzheimer's disease Father Family history of emphysema Family history of congestive heart failure Family history of heart disease in male family member before age 55 Patient's father is Asthma, Onset Age: 82 Sibling Lung cancer Other Family history of malignant neoplasm of breast Hypertension Social History Social History Smoking status: Former smoker Second hand tobacco smoke exposure: No Alcohol intake: current Drinks per week: 2 Alcohol use details: very rarely Substance use: never Substance use type: does not use Gender identity (if verbalized by the patient): Female Spiritual care concerns: No Comments At time of signature, agree with nursing past medical, surgical, social and family history. There is no relevant family history pertinent to the presenting complaint Exam Narrative: GENERAL: Ill-appearing, well-nourished, and in no acute distress. HEAD: Normocephalic, atraumatic. EYES: PERRLA and EOMI. ENT: Nares red, clear rhinorrhea no epistaxis. Mucous membranes moist.TM's normal with good light reflex, throat red with no lesions, exudates, or tonsil enlargement. NECK: Supple. No lymphadenopathy CHEST: Clear to auscultation. No respiratory distress.SAO2 98% on room air, acute cough HEART: Regular rate and rhythm. No murmur heard. Normal peripheral pulses. ABDOMEN: Soft, nontender, nondistended, normal active bowel sounds. EXTREMITIES: Normal range of motion. No edema. SKIN: Warm, dry, no rash. NEURO: No focal deficits. Alert and oriented x3.
== END 2021-06-01 11:59 | disposition home or self-care (01) ==
PROVIDERS: Emergency Provider Registered Nurse; PCP Internal Medicine
DX: U07.1 COVID-19 (principal); K21.9 Gastro-esophageal reflux disease without esophagitis; G47.33 Obstructive sleep apnea (adult) (pediatric); J45.909 Unspecified asthma, uncomplicated; F41.9 Anxiety disorder, unspecified; Z87.891 Personal history of nicotine dependence
CPT/HCPCS: 87426; 99213; C9803; G0463

== ENCOUNTER 2021-07-21 13:58 | Outpatient (CLI) | payer MEDICARE, SELFPAY ==
--- NOTE | ~2021-07-21 | CT_ITS ---
EXAMINATION: CT abdomen pelvis w con INDICATION: Malignant neoplasm of the left kidney TECHNIQUE: Computed tomographic images of the abdomen and pelvis were obtained after the administrati on of 100 cc of Omnipaque 350 intravenous contrast. The dose-length product (DLP) was 323.39 mGy-cm. Automated exposure control and iterative reconstruction technique were employed. COMPARISON: 12/01/2020 FINDINGS: Minimal dependent atelectasis is present in the lung bases. The heart size is normal. There is a chronic and stable 4 mm nodule of the left lower lobe, likely old granulomatous disease. A mode rate-sized sliding hiatal hernia is again noted. The liver, pancreas, gallbladder, and right adrenal gland are normal. Punctate calcifications in an otherwise normal spleen likely represent healed granu lomatous disease. The right kidney is unremarkable. There are changes of left nephrectomy and adrenal ectomy. No residual or recurrent mass is identified. No pathologically enlarged abdominal or pelvic l ymph nodes are identified. There is calcified atherosclerosis of the aorta and many of the other karla kirill. There is vertebroplasty change in the T12 vertebral body. IMPRESSION: 1. Changes of left nephrectomy and left adrenalectomy without residual or recurrent disease. Reviewed, dictated and finalized at location B. ROOM TENDER IMPRESSION: 1. Changes of left nephrectomy and left adrenalectomy without residual or recur rent disease.
[2021-07-21 14:31] LABS: Estimated Glomerular Filt Rate 49
== END 2021-07-21 13:59 | disposition home or self-care (01) ==
LOC: ANHIMG 14:02
PROVIDERS: PCP Internal Medicine; Visit Provider Urology
DX: C64.2 Malignant neoplasm of left kidney, except renal pelvis (principal)
CPT/HCPCS: 74177; Q9967

== ENCOUNTER 2021-11-06 13:38 | Outpatient (CLI) | payer MEDICARE, SELFPAY ==
--- NOTE | ~2021-11-06 | XR_ITS ---
XR chest 2V DATE: 11/06/2021 14:05 INDICATION: Shortness of breath, chest tightness and burning. Cough. TECHNIQUE: PA and lateral views COMPARISON: 12/24/2020 CT diagnostic chest examination 06/09/2020 PA and lateral chest FINDINGS: Interval moderate anterior wedge T12 compression fracture with vertebroplasty since 06/09/19 21. There is osteopenia. Bilateral hyperinflation. No pulmonary infiltrate or consolidation, pleural effusion or pulmonary vas cular congestion or pneumothorax. Normal heart size. No hilar or mediastinal enlargement. Mild to moderate hiatal hernia. IMPRESSION: Bilateral hyperinflation; no active cardiac pulmonary disease Moderate anterior wedge compression fracture deformity and vertebroplasty at T12, new findings since 06/09/2020 Hiatal hernia Reviewed, dictated and finalized at location A. IMPRESSION: Bilateral hyperinflation; no active cardiac pulmonary disease Moderate anterior wedge compression fracture deformity and vertebroplasty at T1 2, new findings since 06/09/2020 Hiatal hernia
== END 2021-11-06 13:39 | disposition home or self-care (01) ==
PROVIDERS: PCP Internal Medicine; Visit Provider Nurse Practitioner Family
DX: R06.02 Shortness of breath (principal); U09.9 Post COVID-19 condition, unspecified; K44.9 Diaphragmatic hernia without obstruction or gangrene; R91.8 Other nonspecific abnormal finding of lung field
CPT/HCPCS: 71046

== ENCOUNTER 2021-11-20 08:12 | Outpatient (CLI) | payer MEDICARE, SELFPAY ==
--- NOTE | ~2021-11-20 | NM_ITS ---
EXAMINATION: NM emilio stress w perfusion DATE: 11/20/2021 13:01 CDT INDICATION: Chest pain TECHNIQUE: Rest images were obtained following intravenous administration of 10 mCi Tc99m tetrofosmin (Myoview). The patient was infused intravenously with Lexiscan (regadenoson). Then, 31.8 mCi Tc99m t etrofosmin (Myoview) was administered intravenously, and stress images were obtained. Data was recons tructed into short axis and horizontal and vertical long axis SPECT images. Gated SPECT images were a lso obtained. COMPARISON: None. FINDINGS: There is no definite reversible or fixed perfusion abnormality to suggest ischemia or infar ction. There is no segmental wall motion abnormality. Left ventricular ejection fraction measures 5 7%. IMPRESSION: 1. No definite ischemia or infarct. 2. Mildly decreased left ventricular ejection fraction measuring 57%. Reviewed, dictated and finalized at location A.
--- NOTE | ~2021-11-20 | MR_ITS ---
EXAMINATION: MR brain IAC wo con DATE: 11/20/2021 11:01 INDICATION: Dementia TECHNIQUE: Magnetic resonance imaging (MRI) of the brain and brainstem was performed without intraven ous contrast. Sequences included sagittal and axial T1-weighted FSE, axial diffusion-weighted FS EPI, axial T2*-weighted GRE, axial T2-weighted FLAIR Propeller, axial T2-weighted Propeller, small field- of-view coronal FIESTA, small nafzp-ev-bppu coronal T1-weighted FSE, small lhztx-pp-qapm axial T1-jermaine ghted SPGR. Apparent diffusion coefficient (ADC) maps were created. COMPARISON: None. FINDINGS: There are no areas of restricted diffusion to suggest acute infarction. No intracranial hemorrhage or abnormal intracranial mass lesion. There are no intraparenchymal signal abnormalities seen on the ot her pulse sequences. There is a large cavum pellucidum cyst measuring 4.8 cm AP, 2.3 cm craniocaudall y and 1.9 cm left to right. There is prominent outward bulging of the gomez of the cyst which partial ly efface the bodies of the left and right ventricles. No evident dilation of the ventricles or periv entricular increased white matter T2 hyperintensity to suggest transependymal flow in the setting of hydrocephalus. Mild increased prominence of the subarachnoid spaces overlying the convexities consist ent with mild age-appropriate diffuse volume loss. Normal seventh/eighth cranial nerve complexes. Aston ateral cochlea and semicircular canals appear normal. No cerebellopontine angles masses. Trace left m astoid effusion. No fluid in the right mastoid air cells or bilateral middle ear cavities. There are no abnormal extra-axial fluid collections. 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 Flow voids are seen in the cerebral arteries on the T2-weighted sequences cons istent with their expected patency. Mild mucosal thickening the bilateral ethmoid sinuses. Visualized orbits and soft tissues are unremarkable. Moderate spondylosis in the visualized upper cervical spin e. No evidence of syrinx in the visualized upper cervical spine. IMPRESSION: 1. Prominent 4.8 x 2.3 x 1.8 cm cavum pellucidum cyst which partially effaces the bodies of the left and right lateral ventricles. Cysts of this size can be symptomatic presenting with a variety of neur ologic symptoms including headache, focal neurologic deficits, ataxia, seizures, syncope as well as v isual and sensorimotor findings. Consider neurosurgical consultation. 2. Chiari I malformation with cerebellar tonsils extending 8-9 mm caudal to the level of the foramen magnum as measured in the mid sagittal plane. 3. Trace left mastoid effusion. Otherwise unremarkable evaluation of the temporal bones and internal auditory canals. Reviewed, dictated and finalized at location A. IMPRESSION: 1. Prominent 4.8 x 2.3 x 1.8 cm cavum pellucidum cyst which partially effaces t he bodies of the left and right lateral ventricles. Cysts of this size can be s ymptomatic presenting with a variety of neurologic symptoms including headache, focal neurologic deficits, ataxia, seizures, syncope as well as visual and sen sorimotor findings. Consider neurosurgical consultation. 2. Chiari I malformation with cerebellar tonsils extending 8-9 mm caudal to the level of the foramen magnum as measured in the mid sagittal plane. 3. Trace left mastoid effusion. Otherwise unremarkable evaluation of the tempor al bones and internal auditory canals.
--- NOTE | 2021-11-20 08:19 | EST_ITS ---
Patient Info Name: Tara Mederos Age: 76 years : 1945 Gender: Female Ht: 62 in Wt: 120 lbs BSA: 1.55 m2 HR: 77 bpm BP: 126 / 89 mmHg Heart Rhythm: Sinus Rhythm Exam Date: 11/20/2021 9:18 AM Exam Location: [facility] Stress Patient Status: Outpatient Admit Date: 11/20/2021 Staff Ordering Physician: Kam Law DO Attending Provider: Kam Law DO Exercise Technologist: Mariana Street CT Exercise Physician: Serg Jacobo DO Exam Type: CA stress emilio w NM Study Info Indications R07.9 - Chest pain, unspecified A regadenoson stress test was performed. Summary 1. 1. Negative lexiscan stress test for ischemic ST changes by ECG criteria. 2. 2. Stable hemodynamics throughout the test. 3. 3. Nuclear scan to follow and will be reported separately. Please correlate with it. 4. 4. Patient informed of the above results. Protocol: Lexiscan Stress ECG Details Stage: REST Duration (min): 1 min : 34 sec HR (bpm): 76 SBP (mmHg): 126 DBP (mmHg): 81 Stage: REST Duration (min): 9 min : 58 sec HR (bpm): 79 SBP (mmHg): 126 DBP (mmHg): 81 Stage: STAGE 1 Duration (min): 0 min : 59 sec HR (bpm): 110 SBP (mmHg): 119 DBP (mmHg): 92 Stage: RECOVERY Duration (min): 1 min : 0 sec HR (bpm): 114 SBP (mmHg): 119 DBP (mmHg): 92 Stage: RECOVERY Duration (min): 2 min : 0 sec HR (bpm): 111 SBP (mmHg): 119 DBP (mmHg): 92 Stage: RECOVERY Duration (min): 3 min : 0 sec HR (bpm): 105 SBP (mmHg): 109 DBP (mmHg): 79 Stage: RECOVERY Duration (min): 3 min : 16 sec HR (bpm): 106 SBP (mmHg): 109 DBP (mmHg): 79 Rest HR: 79 bpm Peak HR: 115 bpm Rest Sys BP: 126 mmHg Peak Sys BP: 119 mmHg Max Pred HR: 146 bpm % Max Pred HR: 79 % Target HR: 124 bpm Max RPP: 13,685 bpm*mmHg Termination Reason: Completed protocol Cardiac Symptoms: Shortness of breath Total Time: 1 min : 0 sec Rest Robles BP: 81 mmHg Peak Robles BP: 92 mmHg Total Dose: 0.4 mg Resting ECG Sinus rhythm, low voltage in diffuse leads. Stress ECG No ST changes. Arrhythmias None. Report Signatures
== END 2021-11-20 08:13 | disposition home or self-care (01) ==
PROVIDERS: PCP Internal Medicine; Visit Provider Internal Medicine
DX: R07.9 Chest pain, unspecified (principal); F03.90 Unspecified dementia, unspecified severity, without behavioral disturbance, psychotic disturbance, mood disturbance, and anxiety; G93.5 Compression of brain
CPT/HCPCS: 70551; 78452; 93017; A9502; J2785

== ENCOUNTER → 2021-11-23 11:35 | Outpatient (CLI) | payer MEDICARE, SELFPAY ==
--- NOTE | ~2021-11-23 | XR_ITS ---
EXAMINATION: XR lumbar spine 2-3V DATE: 11/23/2021 12:01 INDICATION: Osteoporosis with vertebral pathologic fracture TECHNIQUE: Anteroposterior and lateral views of the lumbar spine, and cone-down lateral view of the l umbosacral junction were obtained. COMPARISON: Lumbar spine MR dated 12/31/2020 FINDINGS: Alignment is normal. Interval vertebroplasty at a now chronic T12 compression fracture with 20% anter ior vertebral body height loss. Schmorl's node along the anterior inferior endplate of L1. Vertebral body heights are otherwise normal. Moderate disc height loss at L1-L2. Sacrum and bilateral sacroilia c joints are normal. Mild to moderate lumbar facet osteoarthritis. There are surgical clips along the left side of the lumbar spine likely related to prior left nephrectomy. IMPRESSION: 1. Interval vertebroplasty of a chronic T12 compression fractures with unchanged 20% anterior vertebr al body height loss. 2. Moderate lumbar spondylosis. Reviewed, dictated and finalized at location B. IMPRESSION: 1. Interval vertebroplasty of a chronic T12 compression fractures with unchange d 20% anterior vertebral body height loss. 2. Moderate lumbar spondylosis.
== END ==
PROVIDERS: PCP Internal Medicine; Visit Provider Pain Medicine Pain Medicine
DX: M80.88XS Other osteoporosis with current pathological fracture, vertebra(e), sequela (principal); M47.896 Other spondylosis, lumbar region
CPT/HCPCS: 72100

== ENCOUNTER → 2021-11-28 10:30 | Outpatient (CLI) | payer MEDICARE, SELFPAY ==
--- NOTE | ~2021-11-28 | MR_ITS ---
EXAMINATION: MR thoracic spine wo con DATE: 11/28/2021 11:27 INDICATION: Thoracic back pain. Muscle spasms. TECHNIQUE: Magnetic resonance imaging (MRI) of the thoracic spine was performed without intravenous c ontrast. Sagittal localizer T1-weighted FSE of the cervical spine was obtained. Thoracic spine sequen uzma included sagittal T2-weighted FSE, sagittal T1-weighted FSE, sagittal T2-weighted FS FSE, and axi al T2-weighted FSE. COMPARISON: Chest 2 views 11/06/2021 FINDINGS: There is 6 degrees levocurvature of thoracic spine. There is kyphosis of thoracic spine. Th ere is a chronic burst fracture of T12 with 2/5 loss of height and changes of vertebroplasty. There i s a hemangioma in T7 vertebral body. Intervertebral disc heights are normal. At T8-T9, there is a rig ht central extrusion with mild central canal stenosis. There is multilevel facet joint osteoarthritis . On the right, there is mild neural foraminal stenosis at T1-T2, T3-T4, T6-T7, T7-T8, and T8-T9. On the left, there is mild neural foraminal stenosis at T1-T2 and from T3-T4 through T7-T8. The spinal c ord signal intensity is normal. The conus medullaris is at L1. Partially visualized is a multinodular goiter. There is a moderate-sized sliding hiatal hernia. IMPRESSION: 1. Mild thoracic spondylosis. 2. Moderate-sized sliding hiatal hernia. Reviewed, dictated and finalized at location A.
== END ==
PROVIDERS: PCP Internal Medicine; Visit Provider Pain Medicine Pain Medicine
DX: M54.6 Pain in thoracic spine (principal); M47.814 Spondylosis without myelopathy or radiculopathy, thoracic region; K44.9 Diaphragmatic hernia without obstruction or gangrene
CPT/HCPCS: 72146

== ENCOUNTER 2021-12-27 12:34 | Emergency (ER) | payer MEDICARE, SELFPAY ==
--- NOTE | ~2021-12-27 | CT_ITS ---
EXAMINATION: CT BRAIN W/O DATE: 12/27/2021 14:43 INDICATION: Cyst seen on previous MRI. Increased symptoms. TECHNIQUE: Computed tomography (CT) of the head was performed without intravenous contrast. The dose- length product was 605.33 mGy-cm. COMPARISON: No prior studies for comparison. FINDINGS: Mild brain parenchymal atrophy. 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 There are scattered mild periventricular and subcortical white matter changes, most likely re lated to small vessel ischemic disease (microangiopathy). . Normal black-white differentiation. No acu te intracranial hemorrhage, infarction, mass or mass effect. There is persistent prominence of the cavum septum pellucidum with mild mass effect on the lateral ve ntricles. No significant change. Paranasal sinuses and mastoids are pneumatized. No depressed skull fractures. IMPRESSION: 1. No acute intracranial abnormality. 2: Stable appearance to prominent cavum septum pellucidum with mild mass effect on the frontal horns of the lateral ventricles. Reviewed, dictated and finalized at location [facility]. IMPRESSION: 1. No acute intracranial abnormality. 2: Stable appearance to prominent cavum septum pellucidum with mild mass effec t on the frontal horns of the lateral ventricles.
[2021-12-27 12:42] VITALS: BP 143/89; PULSE 82; RESP 18; TEMP 37.1; O2SAT 100
--- NOTE | 2021-12-27 12:49 | ECG_ITS ---
Measurements Intervals [place] Rate: 78 P: 51 CO: 132 QRS: -11 QRSD: 88 T: 33 QT: 368 QTc: 422 Interpretive Statements SINUS RHYTHM NORMAL ECG NO PREVIOUS ECG AVAILABLE FOR COMPARISON Electronically Signed On 12-27-2021 14:47:53 CDT by Gaston Scruggs M.D.
[2021-12-27 12:57] LABS: Basophils Absolute Auto 0.1 K/mm3 (0.0-0.1); Basophils Percent Auto 1.1 % (0.2-1.2); Eosinophils Absolute Auto 0.2 K/mm3 (0-0.3); Eosinophils Percent Auto 2.3 % (0-4.4); Hematocrit 42.8 % (37.0-47.0); Hemoglobin 13.7 g/dL (12.0-15.0); Immature Granulocyte Absolute 0.02 K/mm3 (0.00-0.031); Immature Granulocyte Percent A 0.3 % (0-0.5); Lymphocytes Absolute Auto 1.74 K/mm3 (0.9-3.2); Lymphocytes Percent Auto 26.5 % (18.3-44.2); Mean Corpuscular Hemoglobin 26.9 pg (26-34); Mean Corpuscular Volume 83.9 fl (80-100); Monocytes Absolute Auto 0.4 K/mm3 (0.1-0.6); Monocytes Percent Auto 6.7 % (2.6-8.5); Neutrophils Absolute Auto 4.1 K/mm3 (1.3-6.7); Neutrophils Percent Auto 63.1 % (45.5-73.1); Platelet Count Result 317 k/mm3 (150-375); Red Cell Distribution Width 13.8 % (11.5-14.5); White Blood Count 6.6 K/mm3 (4.5-10.0)
[2021-12-27 13:10] LABS: Alanine Aminotransferase 22 U/L (6-35); Albumin Level 4.7 g/dL (3.5-5.1); Alkaline Phosphatase 89 U/L (38-126); Anion Gap 11 mmol/L (8-16); Aspartate Amino Transferase 38 U/L (14-36); Bilirubin,Total 0.6 mg/dL (0.2-1.3); Blood Urea Nitrogen 24 mg/dL (7-17); Calcium 9.6 mg/dL (8.4-10.2); Carbon Dioxide 25 mmol/L (22-30); Chloride 101 mmol/L (98-107); Estimated CRCL calculation 34 ml/min; Estimated Glomerular Filt Rate 54; Glucose 93 mg/dL (65-110); Potassium 4.6 mmol/L (3.4-5.0); Sodium 137 mmol/L (137-145)
--- NOTE | 2021-12-27 13:33 | ED.DIZZY ---
HPI - Dizziness General Chief Complaint: Dizziness Stated Complaint: headache Time Seen by Provider: 12/27/21 12:50 History of Present Illness HPI Narrative: Patient is a 76-year-old female here for evaluation of feeling weak, double vision, near syncope, nausea, and daily headaches for the past 6 months. Patient states that the symptoms have come on gradually, and have worsened in nature and are now becoming more frequent. Additionally, she is now experiencing brain zaps , and numbness in my head intermittently. She was evaluated by her primary care provider beginning of November for this issue had a brain MRI and a stress test ordered. 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 She was given neurosurgical follow up but she does not have a follow-up appointment until January. She presents today because her symptoms are now worse and she notes that she does not think she can wait till January for evaluation. Denies any chest pain, shortness of breath, fevers, chills. Related Data Allergies Allergy/AdvReac Type Severity Reaction Status Date / Time No Known Allergies Allergy Verified 12/27/21 12:56 Review of Systems Review of Systems: Gen: Denies fevers or chills Eyes: Denies eye pain or visual change ENT: Denies congestion Respiratory: Denies shortness of breath or cough CV: Denies chest pain or palpitations GI: Denies abdominal pain nausea, emesis or diarrhea denies burning, urgency, frequency or hematuria Musculoskeletal: Denies back pain or muscle pain Neuro: Denies numbness, tingling, weakness or focal weakness Skin: Denies rash Except as documented, all other systems reviewed and negative [facility] Past Medical History Medical History Anxiety disorder, unspecified Asthma Femur open fracture, left monet GERD (gastroesophageal reflux disease) Hx of renal cell cancer SOHA (obstructive sleep apnea) Right wrist fracture ORIF plates and screws Surgical History Surgical History H/O partial thyroidectomy History of kidney removal left renal cancer History of vertebroplasty T12 Family History Family History (Reviewed 11/06/21 @ 13:04 by Nohemi Zapata [facility]) Mother Family history of Alzheimer's disease Father Family history of emphysema Family history of congestive heart failure Family history of heart disease in male family member before age 55 Patient's father is Asthma, Onset Age: 82 Sibling Lung cancer Other Family history of malignant neoplasm of breast Hypertension Social History Social History (Reviewed 11/06/21 @ 13:04 by Nohemi Zapata [facility]) Smoking status: Never smoker Second hand tobacco smoke exposure: No Alcohol intake: current Drinks per week: 2 Alcohol use details: very rarely Substance use: never Substance use type: does not use Gender identity (if verbalized by the patient): Female Spiritual care concerns: No Exam Narrative: APPEARANCE: No acute distress, nontoxic, resting in bed EYES: fatigueable horizontal nystagmus noted HEENT: Normocephalic, atraumatic, OMM RESPIRATORY: No respiratory distress Clear to auscultation bilaterally with no rhonchi wheezing or rales. CARDIOVASCULAR: Regular rate and rhythm without murmurs rubs or gallops. ABDOMINAL: Soft, nontender, nondistended, no rebound or guarding MUSCULOSKELETAl: Moves all extremities. No clubbing, cyanosis or edema. NEURO: slight differences in pupil reactive time, L is slower than R. notes difficulty with looking up. Decreased hearing on the left. Finger to nose normal. SKIN: Warm, dry. No rashes lesions or abrasions PSYCHIATRIC: Normal affect/mood, Course Consultations Consultation #1: Spoke with Dr. Plascencia, neurosurgery, notes chiari likely chornic, hard to say
[2021-12-27 13:49] VITALS: BP 149/95; PULSE 79; RESP 18; O2SAT 99
[2021-12-27] MEDS: ONDANSETRON HCL ODT 4 MG TABLET PO (13:51)
[2021-12-27 15:04] VITALS: BP 129/83; PULSE 81; RESP 16; O2SAT 97
[2021-12-27 15:44] VITALS: BP 129/83; PULSE 82; RESP 18; O2SAT 98
== END 2021-12-27 15:46 | disposition home or self-care (01) ==
PROVIDERS: Emergency Medicine; Emergency Provider Preventive Medicine Aerospace Medicine; PCP Internal Medicine
DX: G93.5 Compression of brain (principal); G93.0 Cerebral cysts; J45.909 Unspecified asthma, uncomplicated; K21.9 Gastro-esophageal reflux disease without esophagitis; Z85.528 Personal history of other malignant neoplasm of kidney; G47.33 Obstructive sleep apnea (adult) (pediatric); E89.0 Postprocedural hypothyroidism; Z90.5 Acquired absence of kidney
CPT/HCPCS: 36415; 70450; 80053; 85025; 93005; 99284; A9270

== ENCOUNTER → 2022-01-20 09:35 | Outpatient (CLI) | payer MEDICARE, SELFPAY ==
--- NOTE | ~2022-01-20 | MR_ITS ---
EXAMINATION: MR lumbar spine wo con DATE: 01/20/2022 10:06 INDICATION: Lumbar radiculopathy TECHNIQUE: Magnetic resonance imaging (MRI) of the lumbar spine was performed without intravenous con trast. Sequences included sagittal T2-weighted FSE, sagittal T2-weighted FS FSE, sagittal T1-weighted FSE, and axial T2-weighted FSE. COMPARISON: 12/31/2020 FINDINGS: 1-2 mm retrolisthesis L1 on L2 and L2 on L3. No interval progression of a T12 burst fracture with 20% anterior vertebral body height loss with change of interval vertebroplasty. The more caudal lumbar v ertebral body heights remain normal. Moderate disc height loss with mild fibrofatty degenerative endp late changes at L1-L2. Marrow signal is otherwise unremarkable. Mild disc height loss at L2-L3. Norm al marrow signal. The conus medullaris terminates at L1. There is normal signal in the caudal spinal cord. Postoperative change of prior left nephrectomy. Paravertebral soft tissues are otherwise unrema rkable. The following disc levels are specifically discussed: T11-T12: The disc does not extend beyond the endplate margin. Negligible retropulsion along the cepha lad aspect of the posterior wall of T12. There is mild bilateral facet joint osteoarthritis. There is no neural foraminal stenosis. There is no central canal stenosis. T12-L1: The disc does not extend beyond the endplate margin. There is mild bilateral facet joint oste oarthritis. There is no neural foraminal stenosis. There is no central canal stenosis. L1-L2: Disc is mildly bulging with unchanged superimposed left paracentral disc extrusion. There is m inimal bilateral facet joint osteoarthritis. There is moderate bilateral neural foraminal stenosis. T here is mild central canal stenosis. L2-L3: Disc is bulging with annular fissure. There is mild bilateral facet joint osteoarthritis. Ther e is moderate bilateral neural foraminal stenosis. There is mild central canal stenosis. L3-L4: Disc is bulging. There is mild left and moderate right facet joint osteoarthritis. There is mo derate bilateral neural foraminal stenosis. There is mild central canal stenosis. L4-L5: Disc is bulging. There is mild left and moderate to severe right facet joint osteoarthritis. T here is moderate left and mild to moderate right neural foraminal stenosis. There is mild central can al stenosis. L5-S1: Disc is bulging. There is moderate left and moderate to severe right facet joint osteoarthriti s. There is mild bilateral neural foraminal stenosis. There is mild central canal stenosis. IMPRESSION: 1. No significant change in moderate lumbar spondylosis. 2. Interval vertebroplasty of a chronic T12 burst fracture with unchanged 20% anterior vertebral body height loss and negligible retropulsion. 2. Status post left nephrectomy. Reviewed, dictated and finalized at location [facility]. IMPRESSION: 1. No significant change in moderate lumbar spondylosis. 2. Interval vertebroplasty of a chronic T12 burst fracture with unchanged 20% a nterior vertebral body height loss and negligible retropulsion. 2. Status post left nephrectomy.
== END ==
PROVIDERS: PCP Internal Medicine; Visit Provider Nurse Practitioner Family
DX: M47.26 Other spondylosis with radiculopathy, lumbar region (principal)
CPT/HCPCS: 72148

== ENCOUNTER → 2022-07-23 13:41 | Outpatient (CLI) | payer MEDICARE, SELFPAY ==
--- NOTE | ~2022-07-23 | CT_ITS ---
EXAMINATION: CT abdomen pelvis wo/w con DATE: 07/23/2022 14:17 INDICATION: Restaging malignant neoplasm of left kidney; status post left nephrectomy TECHNIQUE: Computed tomography (CT) of the abdomen and pelvis was performed without and subsequently with 100 CC Omnipaque 350 intravenous contrast. Automated exposure control and iterative reconstructi on technique were employed. Exam dose: 507.65 mGy-cm total exam DLP. COMPARISON: 07/21/2021 CT abdomen and pelvis with IV contrast material FINDINGS: Minimal discoid atelectasis or scarring at the lower lobes. Normal heart size. No pericardi al or pleural effusion. Moderate sliding hiatal hernia. The liver, gallbladder, bile ducts, pancreas, pancreatic duct spleen are unremarkable. No adrenal mas s lesion. Status post left nephrectomy. No right renal mass lesion or right urinary tract calculus or hydroureteronephrosis. The urinary bladder is unremarkable. Status post hysterectomy. There is atherosclerotic calcification but normal caliber of the abdominal aorta. No intraperitoneal or retroperitoneal or pelvic mass lesion or adenopathy or ascites is detected. Solitary sigmoid diverticulum is identified. No CT evidence of diverticulitis. No bowel obstruction, bowel wall thickening, pneumatosis or intraperitoneal free air. Moderate T12 compression fracture with vertebroplasty. No suspicious osteolytic or osteoblastic lesions are noted. IMPRESSION: Status post left nephrectomy; history of left malignant renal neoplasm. No recurrence or metastatic disease is evident Status post vertebroplasty is stable moderate compression fracture deformity of T12 Moderate sliding hiatal hernia Slight colonic diverticulosis Status post hysterectomy Reviewed, dictated and finalized at [facility]. Reviewed, dictated and finalized at location [facility]. ING REPRESENTATIVE IMPRESSION: Status post left nephrectomy; history of left malignant renal neop lasm. No recurrence or metastatic disease is evident Status post vertebroplasty is stable moderate compression fracture deformity of T12 Moderate sliding hiatal hernia Slight colonic diverticulosis Status post hysterectomy
--- NOTE | ~2022-07-23 | XR_ITS ---
Clinical Indication: Renal cell carcinoma PA and lateral views of the chest: Comparison: 11/06/2021 Findings: The lungs are clear, without evidence of focal consolidation or pleural effusion. Cardiome diastinal silhouette is within normal limits. Stable vertebroplasty at T12. Impression: Clear lungs. Reviewed, dictated and finalized at [facility]. [employer]ER Impression: Clear lungs.
[2022-07-23 14:04] LABS: Estimated Glomerular Filt Rate 48
== END ==
PROVIDERS: PCP Internal Medicine; Visit Provider Urology
DX: C64.2 Malignant neoplasm of left kidney, except renal pelvis (principal); K44.9 Diaphragmatic hernia without obstruction or gangrene; K57.30 Diverticulosis of large intestine without perforation or abscess without bleeding; Z90.49 Acquired absence of other specified parts of digestive tract
CPT/HCPCS: 71046; 74178; Q9967

== ENCOUNTER 2022-10-15 13:59 | Outpatient (CLI) | payer MEDICARE, SELFPAY ==
--- NOTE | ~2022-10-15 | US_ITS ---
EXAMINATION: US thyroid DATE: 10/15/2022 14:38 INDICATION: Thyroid nodules. TECHNIQUE: Multiple ultrasound images of the thyroid were obtained. COMPARISON: Thyroid ultrasound 04/24/2013 FINDINGS: The right thyroid lobe measures 5.0 x 2.4 x 2.3 cm. The left thyroid lobe is absent. In the right th yroid lobe, there is a new 11 mm solid, hypoechoic, wider than tall nodule with lobulated margin with out echogenic foci (TI-RADS TR4) with increase in size from 04/24/13. In the right thyroid lobe, ther e is a 7 mm solid, hypoechoic, wider than tall nodule with smooth margin without echogenic foci (TR4) . In the right thyroid lobe, there is a 6 mm solid, hypoechoic, wider than tall nodule with smooth ma rgin without echogenic foci (TR4). There are multiple other subcentimeter nodules in right thyroid lo be. IMPRESSION: 1. Thyroid nodules. Thyroid ultrasound is recommended in one year. Reviewed, dictated and finalized at location [facility].
== END 2022-10-15 14:00 | disposition home or self-care (01) ==
PROVIDERS: PCP Physician Assistant; Visit Provider Internal Medicine
DX: E04.1 Nontoxic single thyroid nodule (principal)
CPT/HCPCS: 76536

== ENCOUNTER 2022-11-01 01:48 | Day surgery (SDC) | payer MEDICARE, SELFPAY ==
[2022-10-20 14:46] VITALS: BMI 20.7
--- NOTE | 2022-10-29 16:03 | PM.HPGS ---
History of Present Illness History of Present Illness Consent: Risks, benefits, and alternatives have been discussed and questions answered. Patient agrees to proceed with procedure. Chief complaint: melena Narrative: Tara Mederos is a 77 year old female with acid reflux symptoms who recently has had black stools. Review of Systems Review of Systems: All systems reviewed & are unremarkable except as noted in HPI and below PMFSH Past Medical History Medical History Anxiety disorder, unspecified Asthma Femur open fracture, left monet GERD (gastroesophageal reflux disease) Hx of renal cell cancer SOHA (obstructive sleep apnea) Right wrist fracture ORIF plates and screws Surgical History Surgical History H/O partial thyroidectomy History of kidney removal left renal cancer History of vertebroplasty T12 Family History Family History Mother Family history of Alzheimer's disease Father Family history of emphysema Family history of congestive heart failure Family history of heart disease in male family member before age 55 Patient's father is Asthma, Onset Age: 82 Sibling Lung cancer Other Family history of malignant neoplasm of breast Hypertension Social History Social History Smoking status: Never smoker Second hand tobacco smoke exposure: No Alcohol intake: never Drinks per week: 2 Alcohol use details: very rarely Substance use: never Substance use type: does not use Lack of Transportation: No Lack of Food: Never True Current Housing: I Have Housing Concerned About Future Housing: No Difficulty Paying Gas/Electric Bills: No Difficulty Paying for Meds: No Currently Unemployed: No Education: High School Diploma/GED Difficulty w/ Childcare or Family Care: No Living arrangements: alone Gender identity (if verbalized by the patient): Female Spiritual care concerns: No Meds Home Medications and Allergies Home Medications Medication Instructions Recorded Confirmed Type fluticasone propionate 50 2 spray intranasal DAILY #18.2 mL 09/24/21 11/01/22 Rx mcg/actuation nasal spray,suspension (Flonase Allergy Relief) albuterol sulfate 90 mcg/actuation 1 - 2 inh inhalation Q4-6H PRN 11/06/21 11/01/22 Rx aerosol inhaler shortness of breath or wheezing #8.5 grams Symbicort 160 mcg-4.5 2 puff inhalation Q12H #10.2 grams 11/09/21 11/01/22 Rx mcg/actuation HFA aerosol inhaler (budesonide-formoterol) hydroxyzine HCl 25 mg tablet 25 mg PO .hs PRN itching #30 tabs 03/16/22 11/01/22 Rx tizanidine 2 mg capsule 2 mg PO .hs PRN Muscle Spasm 03/16/22 11/01/22 History pantoprazole 40 mg tablet,delayed 40 mg PO QAM #90 tabs 08/25/22 11/01/22 Rx release lorazepam 0.5 mg tablet 0.5 mg PO BID PRN anxiety #30 tabs 10/12/22 11/01/22 Rx sucralfate 1 gram tablet 1 g PO QID #120 tabs 10/15/22 11/01/22 Rx trazodone 50 mg tablet 50 mg PO QHS #90 tabs 10/20/22 11/01/22 Rx Allergies Allergy/AdvReac Type Severity Reaction Status Date / Time prednisone Allergy Flushing Verified 11/01/22 10:21 Exam Const: General: alert Orientation/consciousness: patient oriented x3 Resp: Auscultation: clear to auscultation bilaterally Cardio: Rhythm: regular rhythm GI: GI Palp: Yes Soft to palpation and No Tenderness to palpation present (GI) Neuro: General: patient oriented x3 Assessment and Plan Assessment and plan (1) Melena: Code(s): K92.1 - Melena Status: Acute Assessment and Plan: EGD with possible biopsy or dilatation or cautery.
[2022-11-01 10:22] VITALS: BP 133/74; PULSE 81; RESP 16; TEMP 36.8; O2SAT 100
[2022-11-01] MEDS: LACTATED RINGERS 1,000 ML 150 ML IV CONT (10:25)
--- NOTE | 2022-11-01 11:17 | WPDANESEPPF ---
Anes - Initial Pre Proc Eval Procedure: Operation Date: 11/01/22 11:30 Proposed Procedures p Esophagogastroduodenoscopy - Jacinto Jacobsen MD Date/Time: 11/01/22 11:17 Surgeon: Jacinto Jacobsen MD Pre Op Diagnosis: melena Patient Data Age: 77 Gender: F Height: 1.6 m Weight: 53.7 kg Last Vital Signs Temp 98.2 F 11/01/22 10:22 Pulse 81 11/01/22 10:22 Resp 16 11/01/22 10:22 BP 133/74 11/01/22 10:22 Pulse Ox 100 11/01/22 10:22 O2 Del Method Room Air 11/01/22 10:22 Allergies Allergy/AdvReac Type Severity Reaction Status Date / Time prednisone Allergy Flushing Verified 11/01/22 10:21 Home Medications Medication Instructions Recorded Confirmed Type fluticasone propionate 50 2 spray intranasal DAILY #18.2 mL 09/24/21 11/01/22 Rx mcg/actuation nasal spray,suspension (Flonase Allergy Relief) albuterol sulfate 90 mcg/actuation 1 - 2 inh inhalation Q4-6H PRN 11/06/21 11/01/22 Rx aerosol inhaler shortness of breath or wheezing #8.5 grams Symbicort 160 mcg-4.5 2 puff inhalation Q12H #10.2 grams 11/09/21 11/01/22 Rx mcg/actuation HFA aerosol inhaler (budesonide-formoterol) hydroxyzine HCl 25 mg tablet 25 mg PO .hs PRN itching #30 tabs 03/16/22 11/01/22 Rx tizanidine 2 mg capsule 2 mg PO .hs PRN Muscle Spasm 03/16/22 11/01/22 History pantoprazole 40 mg tablet,delayed 40 mg PO QAM #90 tabs 08/25/22 11/01/22 Rx release lorazepam 0.5 mg tablet 0.5 mg PO BID PRN anxiety #30 tabs 10/12/22 11/01/22 Rx sucralfate 1 gram tablet 1 g PO QID #120 tabs 10/15/22 11/01/22 Rx trazodone 50 mg tablet 50 mg PO QHS #90 tabs 10/20/22 11/01/22 Rx Patient hx anesthesia problems: none Family hx anesthesia problems: none Results Review: All pre-operative results and documents have been reviewed as part of the pre-operative evaluation. [facility] Past Medical History Medical History Anxiety disorder, unspecified Asthma Femur open fracture, left monet GERD (gastroesophageal reflux disease) Hx of renal cell cancer SOHA (obstructive sleep apnea) Right wrist fracture ORIF plates and screws Surgical History Surgical History H/O partial thyroidectomy History of kidney removal left renal cancer History of vertebroplasty T12 Family History Family History Mother Family history of Alzheimer's disease Father Family history of emphysema Family history of congestive heart failure Family history of heart disease in male family member before age 55 Patient's father is Asthma, Onset Age: 82 Sibling Lung cancer Other Family history of malignant neoplasm of breast Hypertension Social History Social History Smoking status: Never smoker Second hand tobacco smoke exposure: No Alcohol intake: never Drinks per week: 2 Alcohol use details: very rarely Substance use: never Substance use type: does not use Lack of Transportation: No Lack of Food: Never True Current Housing: I Have Housing Concerned About Future Housing: No Difficulty Paying Gas/Electric Bills: No Difficulty Paying for Meds: No Currently Unemployed: No Education: High School Diploma/GED Difficulty w/ Childcare or Family Care: No Living arrangements: alone Gender identity (if verbalized by the patient): Female Spiritual care concerns: No Anes - Eval Final PreProcedure Day of Procedure 11/01/22 11:17 Patient weight: normal Heart: regular rate and rhythm Lungs: clear to auscultation Airway: Mallampati scale class II Neurological: alert and oriented Last oral intake: >/= 8 hours ASA classification: III Emergent: no Anesthetic plan: proceed Anesthesia type and monitoring: general GIVS and standard monitoring Results Review: All pre
[2022-11-01 11:59] VITALS: BP 103/70; PULSE 88; RESP 20; O2SAT 97
[2022-11-01 12:09] VITALS: BP 130/77; PULSE 79; RESP 20; O2SAT 98
[2022-11-01 12:19] VITALS: BP 124/84; PULSE 77; RESP 19; O2SAT 98
== END 2022-11-01 12:29 | disposition home or self-care (01) ==
PROVIDERS: PCP Internal Medicine; Visit Provider Internal Medicine Gastroenterology
PROC: 0DJ08ZZ Inspection of Upper Intestinal Tract, Via Natural or Artificial Opening Endoscopic (ICD-10-PCS; CPT 43235; principal; 2022-11-01 11:30)
DX: K22.2 Esophageal obstruction (principal); K44.9 Diaphragmatic hernia without obstruction or gangrene; J45.909 Unspecified asthma, uncomplicated; K21.9 Gastro-esophageal reflux disease without esophagitis; G47.33 Obstructive sleep apnea (adult) (pediatric); F41.9 Anxiety disorder, unspecified; Z90.5 Acquired absence of kidney; Z79.51 Long term (current) use of inhaled steroids; Z85.528 Personal history of other malignant neoplasm of kidney
CPT/HCPCS: 43239; 88305; C1726; J2704; J7120

== ENCOUNTER 2023-04-22 10:39 | Outpatient (CLI) | payer MEDICARE, SELFPAY ==
--- NOTE | ~2023-04-22 | CT_ITS ---
CT Scan of the Chest without Contrast: Clinical Indication: Solitary pulmonary nodule Technique: Contiguous sections were acquired throughout the chest without intravenous contrast. Dose reduction technique was used on this scan by utilizing automated exposure control and iterative recon struction technique. The dose-length product (DLP) was 63.00 mGy-cm. COMPARISON: 12/24/2020 Findings: There is no evidence of any significant mediastinal, hilar or axillary lymphadenopathy. The mediastin al soft tissues appear normal. There is no evidence of pleural or pericardial effusion. Stable 3 mm right upper lobe pulmonary nodule (axial image 68). 13 mm groundglass nodule in the left upper lobe is overall similar to prior exam. Stable 4 mm left lower lobe pulmonary nodule. Images through the upper abdomen reveal moderate hiatal hernia. T12 vertebroplasty noted. Impression: Pulmonary nodules, as detailed above, without significant change since 12/24/2020. Stability over this time interval is consistent with benignity. Moderate hiatal hernia. Reviewed, dictated and finalized at [facility]. 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 Stability over this time interval is consistent with benignity. Moderate hiatal hernia.
== END 2023-04-22 10:40 | disposition home or self-care (01) ==
LOC: ANHIMG 10:40
PROVIDERS: PCP Internal Medicine; Visit Provider Physician Assistant
DX: R91.1 Solitary pulmonary nodule (principal); K44.9 Diaphragmatic hernia without obstruction or gangrene; R91.8 Other nonspecific abnormal finding of lung field
CPT/HCPCS: 71250

== ENCOUNTER 2023-06-13 11:25 | Observation (INO) | payer MEDICARE, SELFPAY ==
[2023-06-13] VITALS (17 sets, daily range): BP systolic 130–151; BP diastolic 72–88; PULSE 66–83; RESP 13–20; TEMP 36.7–37.1; O2SAT 95–100
--- NOTE | ~2023-06-13 | NM_ITS ---
EXAMINATION: NM emilio stress w perfusion DATE: 06/14/2023 13:58 INDICATION: Chest pain. TECHNIQUE: Rest images were obtained following intravenous administration of 10.0 mCi Tc99m tetrofosm in (Myoview). The patient was infused intravenously with Lexiscan (regadenoson). Then, 31.7 mCi Tc99m tetrofosmin (Myoview) was administered intravenously, and stress images were obtained. Data was sharla nstructed into short axis and horizontal and vertical long axis SPECT images. Gated SPECT images were also obtained. COMPARISON: Myocardial perfusion imaging 11/20/2021 FINDINGS: There is no definite reversible or fixed perfusion abnormality to suggest ischemia or infar ction. There is no segmental wall motion abnormality. Left ventricular ejection fraction measures > 70%. IMPRESSION: 1. No definite ischemia or infarct. 2. Normal left ventricular ejection fraction measuring >70%. Reviewed, dictated and finalized at location A. IFOCAL BUTTON GENERATOR
--- NOTE | ~2023-06-13 | XR_ITS ---
EXAMINATION: XR chest 2V DATE: 06/13/2023 11:58 INDICATION: Chest pain. TECHNIQUE: Frontal and lateral views of the chest were obtained. COMPARISON: Chest 2 views 07/23/2022 FINDINGS: There is mild scarring in left midlung zone. There is no pneumonia, pleural effusion, or pn eumothorax. There is a moderate-sized hiatal hernia. The heart size is normal. There are changes of v ertebroplasty in lower thoracic spine. IMPRESSION: 1. Mild scarring in left midlung zone. 2. Moderate-sized hiatal hernia. Reviewed, dictated and finalized at location A. UCTION GENERALIST
--- NOTE | 2023-06-13 11:26 | ECG_ITS ---
Measurements Intervals [place] Rate: 79 P: 56 [place]: 130 QRS: -29 QRSD: 88 T: 25 QT: 386 QTc: 443 Interpretive Statements SINUS RHYTHM LOW QRS VOLTAGE IN PRECORDIAL LEADS BORDERLINE R WAVE PROGRESSION, ANTERIOR LEADS CONSIDER INFERIOR INFARCT, AGE INDETERMINATE BASELINE WANDER- III, AVR, AVL, AVF, V3-V6 ABNORMAL ECG COMPARED TO ECG 12/27/2021 12:49:45 NO SIGNIFICANT CHANGES Electronically Signed On 06-13-2023 12:00:36 SKATESMAN by Serg Jacobo D.O.
[2023-06-13 12:29] LABS: Basophils Percent Auto 0.7 % (0.2-1.2); Eosinophils Absolute Auto 0.1 K/mm3 (0-0.3); Eosinophils Percent Auto 1.8 % (0-4.4); Hematocrit 37.5 % (37.0-47.0); Hemoglobin 11.6 g/dL (12.0-15.0); Lymphocytes Absolute Auto 1.59 K/mm3 (0.9-3.2); Mean Corpuscular HGB Conc 30.9 g/dl (32-36); Mean Corpuscular Hemoglobin 25.7 pg (26-34); Mean Platelet Volume 11.1 fl (7.4-10.4); Monocytes Absolute Auto 0.3 K/mm3 (0.1-0.6); Monocytes Percent Auto 7.5 % (2.6-8.5); Neutrophils Absolute Auto 2.4 K/mm3 (1.3-6.7); Platelet Count Result 229 k/mm3 (150-375); Red Blood Count 4.52 M/mm3 (4.2-5.4); Red Cell Distribution Width 14.4 % (11.5-14.5); White Blood Count 4.4 K/mm3 (4.5-10.0)
[2023-06-13 12:41] LABS: INR 0.9; Prothrombin Time 12.8 Seconds (11.1-14.7)
[2023-06-13 12:42] LABS: Partial Thromboplastin Time 28.1 SECONDS (22.3-36.8)
[2023-06-13 12:43] LABS: Alanine Aminotransferase 15 U/L (6-35); Albumin Level 4.5 g/dL (3.5-5.1); Alkaline Phosphatase 85 U/L (38-126); Anion Gap 9 mmol/L (8-16); Aspartate Amino Transferase 26 U/L (14-36); Bilirubin,Total 0.6 mg/dL (0.2-1.3); Blood Urea Nitrogen 17 mg/dL (7-17); Calcium 9.2 mg/dL (8.4-10.2); Carbon Dioxide 22 mmol/L (22-30); Chloride 104 mmol/L (98-107); Estimated CRCL calculation 26 ml/min; Estimated Glomerular Filt Rate 40; Glucose 94 mg/dL (65-110); Lipase 108 U/L (23-300); Potassium 3.9 mmol/L (3.4-5.0); Sodium 135 mmol/L (137-145)
[2023-06-13 12:53] LABS: Troponin I < 0.012 ng/mL (0.000-0.034)
--- NOTE | 2023-06-13 13:12 | ED.GENADULT ---
HPI - General Adult General Chief complaint: Chest Pain <Carly Pierson September, Last Filed: 06/13/23 13:19> Stated complaint: chest pain <Carly Pierson September, Last Filed: 06/13/23 13:19> Time Seen by Provider: 06/13/23 20:05 <Carly Pierson September, Last Filed: 06/13/23 13:19> History of Present Illness HPI narrative: Focused HPI: 1312 Tara Mederos is a 78 y/o female who presents with reports of having these episodes of sever left sided chest pain that moves to her left shoulder and left jaw - She states that she had a severe episode night and went to an OSH ER and was recommended to be admitted and waited 7 hours for a transfer and singed out AMA - she called her PCP and her PCP advised that she come to [place] to be admitted for a cardiac work up because she has been having these chest pain episodes for some time and she states the chest pressure never really goes away - when she got up this morning she felt the pain again and at this time feels chest pressure at an 8/10 radiating to left shoulder/ left jaw and mid upper back. No hx of DC/ HTN - no hx of cardiac cath. GENERAL: Well-appearing, well-nourished, and in no acute distress. HEAD: Normocephalic, atraumatic. CHEST: Clear to auscultation. ?No respiratory distress. HEART: Regular rate and rhythm.? NEURO: ?Alert and oriented x3. Patient screened in triage and initial orders placed.? ?Additional care and disposition to be based upon?diagnostic testing and treatment. <Carly Pierson September, Last Filed: 06/13/23 13:19> Related Data Home medications: Home Medications Medication Instructions Recorded Confirmed tizanidine 2 mg capsule 2 mg PO .hs PRN Muscle Spasm 03/16/22 04/19/23 <Carly Pierson September, - Last Filed: 06/13/23 13:19> Allergies/adverse reactions: Allergies Allergy/AdvReac Type Severity Reaction Status Date / Time prednisone Allergy Flushing Verified 06/13/23 11:26 <Carly Pierson September, - Last Filed: 06/13/23 13:19> Review of Systems Review of Systems: CONSTITUTIONAL: Denies fever CARDIOVASCULAR: Reports chest pain, and edema. RESPIRATORY: Denies dyspnea. <Krys Villegas PA-C - Last Filed: 06/13/23 21:04> All systems reviewed & are unremarkable except as noted in HPI and below <Krys Villegas PA-C - Last Filed: 06/13/23 21:04> [facility] Past Medical History Medical History: Medical History Anxiety disorder, unspecified Asthma Femur open fracture, left monet GERD (gastroesophageal reflux disease) Hx of renal cell cancer SOHA (obstructive sleep apnea) Right wrist fracture ORIF plates and screws <Carly Hughes, LODE MINER - Last Filed: 06/13/23 13:19> Surgical History Surgical History: Surgical History H/O partial thyroidectomy History of kidney removal left renal cancer History of vertebroplasty T12 <Carly Hughes, LODE MINER - Last Filed: 06/13/23 13:19> Family History Family History: Family History Mother Family history of Alzheimer's disease Father Family history of emphysema Family history of congestive heart failure Family history of heart disease in male family member before age 55 Patient's father is Asthma, Onset Age: 82 Sibling Lung cancer Other Family history of malignant neoplasm of breast Hypertension <Carly Hughes, LODE MINER - Last Filed: 06/13/23 13:19> Social History Social History: Social History Smoking status: Never smoker Second hand tobacco smoke exposure: No Alcohol intake: never Drinks per week: 2 Alcohol use details: very rarely Substance use: never Substance use type: does not use Lack of Transportation: No Lack of Food: Never True Current Housing: I Have Housing Concerned About F
[2023-06-13] MEDS: ASPIRIN 81 MG CHEWABLE TABLET 324 MG PO (13:49)
--- NOTE | 2023-06-13 20:19 | ECG_ITS ---
Measurements Intervals [place] Rate: 73 P: 56 LA: 136 QRS: 6 QRSD: 87 T: 37 QT: 408 QTc: 451 Interpretive Statements SINUS RHYTHM CONSIDER INFERIOR INFARCT, AGE INDETERMINATE BASELINE ARTIFACT- I, II, III, AVR, AVL, AVF ABNORMAL ECG COMPARED TO ECG 06/13/2023 11:31:11 NO SIGNIFICANT CHANGES Electronically Signed On 06-14-2023 6:17:17 [employer] by Serg Jacobo D.O.
[2023-06-13 20:42] LABS: Troponin I < 0.012 ng/mL (0.000-0.034)
--- NOTE | 2023-06-13 20:47 | PC.NURSE ---
Pt reported chest pain increasing, feeling tight . Edp made aware.
[2023-06-13] MEDS: ONDANSETRON INJ 4 MG/2 ML VIAL IV PUSH (20:50)
[2023-06-13] MEDS: MORPHINE SULFATE (*CRX) 4 MG/ML INJ IV PUSH (20:50)
--- NOTE | 2023-06-13 20:56 | PM.IMHP ---
H&P: HPI History of Present Illness Date/Time: 06/13/23 20:56 Chief Complaint: chest pain Narrative: this is a 78-year-old female with past medical history significant for asthma, GERD, shortness sleep apnea, anxiety disorder. Dysphagia, esophageal stricture. patient presents to the emergency room due to chest pain localized to the precordial area with radiation to the neck and back present at rest working her up from her sleep couple of nights before. Preliminary workup has been essentially nonrevealing. patient had been to outside facility where in emergency room she was ruled out for acute pulmonary embolism. Patient has been placed in observation for further evaluation management and treat Review of Systems Review of Systems: chest pain precordial area with radiation to the back and neck Constitutional: Constitutional: Denies chills, Denies fatigue, Denies fever(s), Denies malaise, Denies night sweats and Denies weakness Eyes: Eyes: Denies change in vision ENT: Reports dysphagia and Denies odynophagia Cardiovascular: Cardiovascular: Reports chest pain, Reports chest pain at rest, Denies leg edema, Denies radiating jaw, neck or arm pain and Denies palpitations Respiratory: Respiratory: Denies cough and Denies dyspnea Gastrointestinal: Gastrointestinal: Denies abdominal pain, Denies dyspepsia, Reports heartburn, Denies diarrhea and Denies nausea Genitourinary: Genitourinary: Denies dysuria Musculoskeletal: Musculoskeletal: Denies arthralgias Integumentary/Breasts: Skin/Breast: Denies rash Neurologic: Denies focal weakness and Denies Sensory deficit (Neuro) Psychiatric: Psychiatric: Reports no additional psychiatric complaints and Reports as per HPI Endocrine: Endocrine: Denies cold intolerance, Denies fatigue, Denies flushing, Denies heat intolerance, Denies polyphagia, Denies polydipsia, Denies polyuria and Denies palpitations Hematologic/Lymphatic: Hematologic/Lymphatic: Reports no additional hematologic/lymphatic complaints and Reports as per HPI Allergic/Immunologic: Allergic/Immunologic: Reports no additional allergic/immunologic complaints and Reports as per HPI PMFSH Past Medical History Medical History Anxiety disorder, unspecified Asthma Femur open fracture, left monet GERD (gastroesophageal reflux disease) Hx of renal cell cancer SOHA (obstructive sleep apnea) Right wrist fracture ORIF plates and screws Surgical History Surgical History H/O partial thyroidectomy History of kidney removal left renal cancer History of vertebroplasty T12 Family History Family History Mother Family history of Alzheimer's disease Father Family history of emphysema Family history of congestive heart failure Family history of heart disease in male family member before age 55 Patient's father is Asthma, Onset Age: 82 Sibling Lung cancer Other Family history of malignant neoplasm of breast Hypertension Social History Social History Smoking status: Never smoker Second hand tobacco smoke exposure: No Alcohol intake: current Drinks per week: 4 Alcohol use details: very rarely Substance use: current Substance use type: marijuana Do You Feel Safe in your Home?: Yes Lack of Transportation: No Lack of Food: Never True Current Housing: I Have Housing Concerned About Future Housing: No Difficulty Paying Gas/Electric Bills: No Difficulty Paying for Meds: No Currently Unemployed: No Education: High School Diploma/GED Difficulty w/ Childcare or Family Care: No Living arrangements: alone Gender identity (if verbalized by the patient): Female Spiritual care concerns: No Meds Home Medications and Allergies Home Me
[2023-06-13 21:37] LABS: NT Pro B Type Natriuretic Pept 174 pg/mL (19.9-100)
--- NOTE | 2023-06-13 23:07 | ADMGEN ---
[id number] This patient, Tara Mederos, was admitted to IMU Room 209-01. Patient/family oriented to hospital policies and general routines including ID bracelet, bed and alarms, visiting hours, pain management, procedures, bathroom and other care routines, personal items, smoking policy, room service/diet, and visiting hours. Information on how to activate the Rapid Response Team has been discussed. Patient/Family are encouraged to report perceived risks to care and to ask questions if they do not understand what they are told or what they should do.
[2023-06-14] VITALS (13 sets, daily range): BP systolic 113–135; BP diastolic 69–75; PULSE 66–87; RESP 18; TEMP 36.4–36.6; O2SAT 96–100
--- NOTE | 2023-06-14 | ECHO_ITS ---
Patient Info Name: Tara Mederos Age: 78 years : 1945 Gender: Female Ht: 62 in Wt: 120 lbs BSA: 1.55 m2 HR: 82 bpm BP: 113 / 75 mmHg Heart Rhythm: Sinus Rhythm Technical Quality: Good Exam Date: 06/14/2023 11:09 AM Exam Location: Echo Lab Patient Status: Inpatient Admit Date: 06/13/2023 Staff Ordering Physician: Virgilio Edward MD ([email or web address]/[email or web address]) Braider Operator: Beatrice Armendariz RDCS Attending Provider: Laura Borja MD Referring Physician: Wagner GOMES; Exam Type: CA echo doppler color flow Study Info Indications R07.9 - Chest pain, unspecified Complete two-dimensional, color flow and Doppler transthoracic echocardiogram is performed. Summary 1. Complete two-dimensional, color flow and Doppler transthoracic echocardiogram is performed. 2. Left ventricular chamber dimension is normal. 3. Left ventricular systolic function is normal, estimated at 65-70%. 4. The left ventricular diastolic function is grade I diastolic dysfunction. 5. Right ventricular systolic function is normal. 6. There is mild aortic valve regurgitation. Left Ventricle Left ventricular chamber dimension is normal. Left ventricular systolic function is normal, estimated at 65-70%. There is no increased left ventricular wall thickness. The left ventricular diastolic function is grade I diastolic dysfunction. Right Ventricle Right ventricular chamber dimension is normal. Right ventricular systolic function is normal. Left Atria Left atrial chamber dimension is normal. Right Atria Right atrial chamber dimension is normal. Atrial Septum Intact interatrial septum visualized by color flow imaging. Aortic Valve The aortic valve is trileaflet. There is no aortic valve stenosis. There is mild aortic valve regurgitation. Pulmonic Valve The pulmonic valve is not well visualized. Mitral Valve There is trace mitral valve regurgitation. Tricuspid Valve There is trace tricuspid valve regurgitation. Pericardium/Pleural There is no pericardial effusion. Inferior Vena Cava Normal inferior vena cava with <50% collapse upon inspiration consistent with elevated right atrial pressure, 8 mmHg. Aorta The aortic root size at the sinus of Valsalva is normal. Left Ventricular Outflow Tract Name Value Normal LVOT 2D LVOT Diameter 2.0 cm LVOT Doppler LVOT Peak Gradient 7 mmHg LVOT Mean Gradient 2 mmHg LVOT VTI 22 cm LVOT VTI/AV VTI Ratio 0.8 LVOT Stroke Volume 74 ml LVOT CO 5.8 l/min LVOT CI 3.8 l/min/m2 Pulmonic Valve Name Value Normal RVOT Doppler RVOT Peak Gradient 2 mmHg PV Doppler PV Peak Gradient 5 mmHg Mitral Valve -
[2023-06-14 01:06] LABS: Troponin I < 0.012 ng/mL (0.000-0.034)
[2023-06-14] MEDS: NITROGLYCERIN SL 0.4 MG TABLET SUBLINGUAL ×2 (06:11→06:16)
[2023-06-14] MEDS: LORazepam (*CRX) 0.5 MG TABLET PO (06:17)
[2023-06-14] MEDS: FLUTICASONE/SALMETEROL 115-21 MCG INHALER 1 PUFF 2 PUFF INHALATION (08:39)
[2023-06-14] MEDS: PANTOPRAZOLE 40 MG TABLET PO (08:40)
[2023-06-14] MEDS: SULFAMETHOXAZOLE/TRIMETHOPRIM 800/160 MG DS TABLET 1 TAB PO (08:40)
[2023-06-14] MEDS: FLUTICASONE PROPIONATE 0.05% NA SPR 16 GM BTL (*BKC) 2 SPRAY NASAL (08:41)
--- NOTE | 2023-06-14 10:08 | EST_ITS ---
Patient Info Name: Tara Mederos Age: 78 years : 1945 Gender: Female Ht: 62 in Wt: 120 lbs BSA: 1.55 m2 HR: 79 bpm BP: 133 / 82 mmHg Heart Rhythm: Sinus Rhythm Exam Date: 06/14/2023 1:02 PM Exam Location: Echo Lab Patient Status: Inpatient Admit Date: 06/13/2023 Staff Ordering Physician: Virgilio Edward MD Attending Provider: Laura Borja MD Exercise Technologist: Mariana Street, CHINEDU Nurse: Diana Juarez APN Exam Type: CA stress emilio w NM Study Info Indications R07.9 - Chest pain, unspecified A regadenoson stress test was performed. Summary 1. No abnormal ST/T wave changes diagnostic of ischemia with Lexiscan. 2. Please correlate with nuclear medicine images, reported separately. 3. Stress test supervised by Diana Juarez NP. Stress test interpreted by Virgilio Edward MD. Protocol: Lexiscan Stress ECG Details Stage: REST Duration (min): 0 min : 54 sec HR (bpm): 78 SBP (mmHg): 133 DBP (mmHg): 82 Stage: REST Duration (min): 6 min : 24 sec HR (bpm): 80 SBP (mmHg): 133 DBP (mmHg): 82 Stage: STAGE 1 Duration (min): 0 min : 59 sec HR (bpm): 118 SBP (mmHg): 130 DBP (mmHg): 81 Stage: RECOVERY Duration (min): 1 min : 0 sec HR (bpm): 124 SBP (mmHg): 130 DBP (mmHg): 81 Stage: RECOVERY Duration (min): 2 min : 0 sec HR (bpm): 120 SBP (mmHg): 130 DBP (mmHg): 81 Stage: RECOVERY Duration (min): 3 min : 0 sec HR (bpm): 114 SBP (mmHg): 126 DBP (mmHg): 75 Stage: RECOVERY Duration (min): 4 min : 0 sec HR (bpm): 107 SBP (mmHg): 126 DBP (mmHg): 75 Stage: RECOVERY Duration (min): 5 min : 0 sec HR (bpm): 112 SBP (mmHg): 126 DBP (mmHg): 74 Stage: RECOVERY Duration (min): 5 min : 3 sec HR (bpm): 111 SBP (mmHg): 126 DBP (mmHg): 74 Rest HR: 80 bpm Peak HR: 124 bpm Rest Sys BP: 133 mmHg Peak Sys BP: 130 mmHg Max Pred HR: 144 bpm % Max Pred HR: 86 % Target HR: 122 bpm Max RPP: 16,120 bpm*mmHg Total Time: 1 min : 0 sec Rest Robles BP: 82 mmHg Peak Robles BP: 81 mmHg Total Dose: 0.4 mg Resting ECG Sinus rhythm. Stress ECG Sinus tachycardia. No abnormal ST/T wave changes diagnostic of ischemia with Lexiscan. Arrhythmias None. Report Signatures
--- NOTE | 2023-06-14 10:12 | PM.CNCAR ---
Assessment and Plan Assessment and plan (1) Chest pain: Qualifiers: Chest pain type: unspecified Qualified Code(s): R07.9 - Chest pain, unspecified Code(s): R07.9 - Chest pain, unspecified Status: Acute Plan Troponins are negative. EKG without ischemic changes. Last stress test in 11/2021 was negative for ischemia or infarction. Will obtain Lexiscan stress test today. Obtain echocardiogram. If Lexiscan negative and echocardiogram without any significant abnormality, then can discharge patient home. Will arrange close outpatient follow up with us. If Lexiscan stress test is abnormal, then discussed with patient that next step would be cardiac catheterization, which she would be agreeable to. Recommendations and plan discussed with Hospitalist. History of Present Illness History of Present Illness Consult date/time: 06/14/23 10:12 Requesting physician: Krys Villegas PA-C Consult reason: chest pain Reason For Visit: chest pain Narrative: We are consulted for chest pain. This is a 78 year old female with asthma, GERD who presented to [place] ER for chest pain evaluation. Patient had been at [facility] on 06/10/2023 for chest pain evaluation. CTA at that time was negative for PE or aortic dissection. EKG did not show acute changes. Troponin there was negative. Admission was recommended, however, patient had to go home and left against medical advice. She had called her PCP who recommended she come to [place]. Patient reports she has been having chest pain for the past 6 months. Substernal chest pain that radiates to her right back. Not always associated with exertion. Seems to occur daily. Had a severe chest pain episode night while sleeping which prompted her to go to [place] ER. Patient denies tobacco use. Her father from an MD in his 80s. Sister from heart failure at age 78. Workup here shows EKG without any ischemic changes. Troponins are negative x 3. Review of Systems Review of Systems: All systems reviewed & are unremarkable except as noted in HPI and below (HPI) [facility] Past Medical History Medical History Anxiety disorder, unspecified Asthma Femur open fracture, left monet GERD (gastroesophageal reflux disease) Hx of renal cell cancer SOHA (obstructive sleep apnea) Right wrist fracture ORIF plates and screws Surgical History Surgical History H/O partial thyroidectomy History of kidney removal left renal cancer History of vertebroplasty T12 Family History Family History Mother Family history of Alzheimer's disease Father Family history of emphysema Family history of congestive heart failure Family history of heart disease in male family member before age 55 Patient's father is Asthma, Onset Age: 82 Sibling Lung cancer Other Family history of malignant neoplasm of breast Hypertension Social History Social History Smoking status: Never smoker Second hand tobacco smoke exposure: No Alcohol intake: current Drinks per week: 4 Alcohol use details: very rarely Substance use: current Substance use type: marijuana Do You Feel Safe in your Home?: Yes Lack of Transportation: No Lack of Food: Never True Current Housing: I Have Housing Concerned About Future Housing: No Difficulty Paying Gas/Electric Bills: No Difficulty Paying for Meds: No Currently Unemployed: No Education: High School Diploma/GED Difficulty w/ Childcare or Family Care: No Living arrangements: alone Gender identity (if verbalized by the patient): Female Spiritual care concerns: No Meds Home Medications and Allergies Home Medications Medication Instructions Recorded Confirmed Type fluticas
--- NOTE | 2023-06-14 12:20 | PC.NURSE ---
Pt to nuclear medicine via wheelchair for [place].
--- NOTE | 2023-06-14 14:00 | PC.NURSE ---
Pt returned from nuclear medicine via wheelchair with no issues noted.
--- NOTE | 2023-06-14 15:08 | PM.DS ---
DS: Admitting Diagnosis Discharge Date June 14 Admitting Diagnosis Chest pain, anxiety DS: Discharge Diagnosis Discharge Diagnosis (1) Chest pain: Qualifiers: Chest pain type: unspecified Qualified Code(s): R07.9 - Chest pain, unspecified Code(s): R07.9 - Chest pain, unspecified Status: Acute DS: Summary Hospital Course Hospital Course: 78-year-old female with a history of asthma, GERD, anxiety and depression, chronic back pain status post T12 burst fracture vertebroplasty. Patient presented the [facility] chest [facility] 4 days prior to this admission for chest pain. EKG did not show acute changes troponin was negative. Patient left AMA. She returns again as she has substernal chest pain that radiated to the right back. This issue has been going on for some time on and off. She reports it is related to anxiety and it is not like her GERD symptoms. On this admission June 13 her troponin is negative an EKG again without ischemic changes. Her last stress test was in November 2021. 2D echo obtained which demonstrates grade 1 diastolic dysfunction with mild aortic valve regurgitation and 65-70% EF. A Lexiscan stress test was also obtained which was negative for any definite ischemia. The patient is stable to discharge home on 06/14 as she has no more symptomatology. She feels well enough to go home and knows to report to the ER if she has severe pain again. She will also follow up with her PCP within 1 week. The patient was full code during her admission Time Spent with Patient Time attestation: Total time spent providing and/or coordinating discharge services: Exam Const: General: cooperative and no acute distress Resp: Effort & Inspection: normal respiratory effort Auscultation: clear to auscultation bilaterally Cardio: Rate: regular rate Rhythm: regular rhythm Heart sounds: S1 normal heart sound present and S2 normal heart sound present GI: GI Palp: No abdominal tenderness Auscultation: normal bowel sounds DS: Data Data Completed and Pending Labs on day of discharge: Labs from last 24 hours 06/14/23 06/13/23 00:33 20:15 Troponin I < 0.012 < 0.012 NT-Pro-B Natriuret Pep 174 H Discharge Plan Discharge Attending physician on discharge: Deanna Moreira Consulting providers: Kasey Silverio; Carly Hughes Discharging Clinician: Deanna Moreira Patient Disposition: Home, Self-Care Activity: september shower Diet: heart healthy Stand Alone Forms: General Discharge Information Follow-up/Referrals: Kam Law DO [Primary Care Provider] - 1 Week Discharge Medications: Continued albuterol sulfate 90 mcg/actuation HFA aerosol inhaler 1 - 2 inh inhalation Q4-6H PRN (Reason: shortness of breath or wheezing) Qty: 8.5 2RF pantoprazole 40 mg tablet,delayed release (DR/EC) 40 mg PO BID Qty: 90 1RF nitroglycerin 0.4 mg tablet, sublingual 0.4 mg sublingual Q5M PRN (Reason: Chest Pain) Rx Instructions: may repeat x 2 call 911 fluticasone propionate [Flonase Allergy Relief] 50 mcg/actuation spray,suspension 2 spray NASAL DAILY Qty: 18.2 3RF Rx Instructions: administer into each nostril budesonide-formoterol [Symbicort] 160-4.5 mcg/actuation HFA aerosol inhaler 2 puff inhalation Q12H Qty: 10.2 5RF Rx Instructions: rinse and spit lorazepam 0.5 mg tablet 0.5 mg PO BID PRN (Reason: anxiety) Qty: 30 0RF Held sulfamethoxazole-trimethoprim 800-160 mg tablet 1 tablet PO BID Hold Instructions: review use with PCP Rx Instructions: 10 days 06/10/23 to 06/20/23 Date of admission: 06/13/23 20:57 Primary Care Provider: Kam Law Admitting Provider: Laura Borja V. Attending physician on admission: Laura Borja V. Condition: Stable
== END 2023-06-14 16:26 | disposition home or self-care (01) ==
LOC: ANHED 21:01 → ANHIMU 22:58
PROVIDERS: Emergency Medicine; Admitting Provider Internal Medicine; Emergency Provider Physician Assistant; PCP Internal Medicine; Visit Provider General Practice
DX: R07.9 Chest pain, unspecified (principal); F41.9 Anxiety disorder, unspecified; J45.909 Unspecified asthma, uncomplicated; M54.9 Dorsalgia, unspecified; G89.29 Other chronic pain; S22.081S Stable burst fracture of T11-T12 vertebra, sequela; X58.XXXS Exposure to other specified factors, sequela; K21.9 Gastro-esophageal reflux disease without esophagitis; G47.33 Obstructive sleep apnea (adult) (pediatric); K44.9 Diaphragmatic hernia without obstruction or gangrene; N39.0 Urinary tract infection, site not specified; I51.89 Other ill-defined heart diseases; I35.1 Nonrheumatic aortic (valve) insufficiency; Z90.5 Acquired absence of kidney; R94.31 Abnormal electrocardiogram [ECG] [EKG]; R13.10 Dysphagia, unspecified; K22.2 Esophageal obstruction; M79.7 Fibromyalgia; Z85.53 Personal history of malignant neoplasm of renal pelvis; F10.90 Alcohol use, unspecified, uncomplicated; F12.90 Cannabis use, unspecified, uncomplicated; Z79.51 Long term (current) use of inhaled steroids; Z79.899 Other long term (current) drug therapy
CPT/HCPCS: 36415; 71046; 78452; 80053; 83690; 83880; 84484; 85025; 85610; 85730; 93005; 93017; 93306; 94640; 96374; 96375; 99285; A9270; A9502; G0378; J2270; J2405; J2785

== ENCOUNTER 2023-07-13 01:55 | Day surgery (SDC) | payer MEDICARE, SELFPAY ==
[2023-07-12 10:55] VITALS: BMI 21.9
[2023-07-13] VITALS (16 sets, daily range): BP systolic 113–155; BP diastolic 68–94; PULSE 65–90; RESP 12–22; TEMP 36.4–36.6; O2SAT 96–98; BMI 21.1
[2023-07-13 07:28] LABS: Basophils Percent Auto 0.9 % (0.2-1.2); Eosinophils Absolute Auto 0.1 K/mm3 (0-0.3); Eosinophils Percent Auto 3.2 % (0-4.4); Hematocrit 35.6 % (37.0-47.0); Hemoglobin 11.5 g/dL (12.0-15.0); Immature Granulocyte Absolute 0.01 K/mm3 (0.00-0.031); Immature Granulocyte Percent A 0.3 % (0-0.5); Lymphocytes Percent Auto 40.6 % (18.3-44.2); Mean Corpuscular HGB Conc 32.3 g/dl (32-36); Mean Corpuscular Hemoglobin 26.4 pg (26-34); Mean Corpuscular Volume 81.7 fl (80-100); Mean Platelet Volume 11.6 fl (7.4-10.4); Monocytes Absolute Auto 0.4 K/mm3 (0.1-0.6); Monocytes Percent Auto 10.4 % (2.6-8.5); Neutrophils Absolute Auto 1.5 K/mm3 (1.3-6.7); Neutrophils Percent Auto 44.6 % (45.5-73.1); Platelet Count Result 217 k/mm3 (150-375); Red Blood Count 4.36 M/mm3 (4.2-5.4); Red Cell Distribution Width 14.3 % (11.5-14.5); White Blood Count 3.5 K/mm3 (4.5-10.0)
[2023-07-13 07:35] LABS: Anion Gap 4 mmol/L (8-16); Blood Urea Nitrogen 22 mg/dL (7-17); Calcium 9.1 mg/dL (8.4-10.2); Carbon Dioxide 26 mmol/L (22-30); Chloride 107 mmol/L (98-107); Estimated CRCL calculation 33 ml/min; Estimated Glomerular Filt Rate 54; Glucose 93 mg/dL (65-110); Potassium 4.1 mmol/L (3.4-5.0); Sodium 137 mmol/L (137-145)
--- NOTE | 2023-07-13 08:48 | WPDHPUPDATE1 ---
History and Physical Update Update Date/Time: 07/13/23 08:48 History and Physical has been reviewed, including an updated exam of the patient. There are NO changes in the patient's condition. Risks, benefits, and alternatives have been discussed and questions answered. Patient agrees to proceed with procedure.
--- NOTE | 2023-07-13 08:48 | WPDMODSED ---
Moderate Sedation Note-Pt Data Patient Data Diagnosis: Chest pain Present Complaint: Chest pain Procedure to be performed/Plan: Coronary angiography, left heart cath, +/- PCI Allergies Allergy/AdvReac Type Severity Reaction Status Date / Time prednisone Allergy Flushing Verified 07/13/23 07:10 Home Medications Medication Instructions Recorded Confirmed Type albuterol sulfate 90 mcg/actuation 1 - 2 inh inhalation Q4-6H PRN 11/06/21 07/12/23 Rx aerosol inhaler shortness of breath or wheezing #8.5 grams nitroglycerin 0.4 mg sublingual 0.4 mg sublingual Q5M PRN Chest 06/13/23 07/12/23 History tablet Pain lorazepam 0.5 mg tablet 0.5 mg PO BID PRN anxiety #30 tabs 07/01/23 07/12/23 Rx pantoprazole 40 mg tablet,delayed 40 mg PO BID #180 tabs 07/04/23 07/12/23 Rx release aspirin 81 mg chewable tablet 81 mg PO DAILY 07/12/23 07/12/23 History fluticasone propionate 50 2 spray intranasal DAILY PRN 07/12/23 07/12/23 History mcg/actuation nasal Congestion spray,suspension (Flonase Allergy Relief) tizanidine 2 mg tablet 2 mg PO TID PRN Pain, Moderate 07/12/23 07/12/23 History Current Medications: Active Medications Sodium Chloride (Normal Saline Iv) 500 mls @ 100 mls/hr IV CONT .Q5H KHAI Sedation/Anesthesia: No previous sedation/anesthesia problems (including family history). [facility] Past Medical History Medical History Anxiety disorder, unspecified Asthma Femur open fracture, left monet GERD (gastroesophageal reflux disease) Hx of renal cell cancer SOHA (obstructive sleep apnea) Right wrist fracture ORIF plates and screws Surgical History Surgical History H/O partial thyroidectomy History of kidney removal left renal cancer History of vertebroplasty T12 Family History Family History Mother Family history of Alzheimer's disease Father Family history of emphysema Family history of congestive heart failure Family history of heart disease in male family member before age 55 Patient's father is Asthma, Onset Age: 82 Sibling Lung cancer Other Family history of malignant neoplasm of breast Hypertension Social History Social History Smoking status: Never smoker Second hand tobacco smoke exposure: No Alcohol intake: never Drinks per week: 4 Alcohol use details: very rarely Substance use: current Substance use type: does not use Do You Feel Safe in your Home?: Yes Lack of Transportation: No Lack of Food: Never True Current Housing: I Have Housing Concerned About Future Housing: No Difficulty Paying Gas/Electric Bills: No Difficulty Paying for Meds: No Currently Unemployed: No Education: High School Diploma/GED Difficulty w/ Childcare or Family Care: No Living arrangements: alone Gender identity (if verbalized by the patient): Female Spiritual care concerns: No Mod Sed Physical Exam Physical Exam Pre Procedural Exam: Normal: Appearance, Lungs, Heart Rate, Heart Rhythm, Neuro Exam, Abdomen and Extremities Hours since solid foods: 12 Hours since liquid intake: 8 Mallampati Classification: class II Internal Medicine - PN: Obj Da Vital Signs Vital Signs: Vital Signs - 24 hr 07/13/23 07:11 Temperature 36.4 C Pulse Rate 79 Respiratory Rate 19 Blood Pressure 147/81 H Pulse Oximetry 98 Oxygen Delivery Room Air Meds/Results Medications: Active Medications Generic Name Dose Route Start Last Admin Trade Name Freq PRN Reason Stop Dose Admin Sodium Chloride 500 mls @ 100 mls/hr 07/13/23 07:00 Normal Saline Iv IV CONT .Q5H KHAI Labs 07/13/23 07:17 07/13/23 07:17 Labs: Laboratory Results - last 24 hr 07/13/23 07:17 WBC 3.5 L RBC 4.36 Hgb
--- NOTE | 2023-07-13 08:49 | P.PCNCC_ITS ---
Cardiac Cath Procedure Note Date of procedure:: 07/13/23 Performing physician:: CATHETERIZATION LABORATORY REPORT Procedure Date: 07/13/2023 Client Services Account Manager: Virgilio Edward M.D., [facility]? Referring Physician: Virgilio Edward M.D. ? Anesthesia: Versed and Fentanyl were ordered and given in my presence at 08:59, procedure ended at 09:15. Supervision of nurse monitored moderate sedation with Versed and Fentanyl was provided for 16 minutes. Total of Versed 1mg and Fentanyl 50mcg were administered by the Back End Web Developer RN Sarah Beth Wang. Pre-op Diagnosis: Coronary artery disease Post-op Diagnosis: Non-obstructive coronary arteries Procedure(s): 1. Moderate sedation 2. Ultrasound-guided access of the right radial artery 3. Coronary angiography Access Site: Right radial artery Brief History and Clinical Indications: Patient is a 78 year old female who is referred for [facility] for angina. All risks, benefits and alternatives to left heart catheterization with or without percutaneous coronary intervention was discussed at length with the patient. Risk of complications including but not limited to bleeding, infection, arrhythmia, stroke, worsening kidney function, blood loss, groin hematoma, limb loss, emergency coronary artery bypass grafting, and even were discussed with the patient and all questions were answered. The patient understood and wished to proceed. Time out called, patient name, date of , medical record number, allergies, procedure performed, identify Client Services Account Manager, patient and staff member concurred with accurate data, procedure carried on. Findings: LEFT HEART CATHETERIZATION FINDINGS: 1. Left main: The left main coronary artery is widely patent without any significant obstructive disease. 2. Left anterior descending: The LAD and the diagonal branches have mild luminal irregularities without any significant obstructive angiographic disease. Slow flow noted in the LAD 3. Left circumflex: The left circumflex artery and the main marginal branches have mild luminal irregularities without any significant obstructive angiographic disease. 4. Right coronary artery: The RCA has mild luminal irregularities without any significant obstructive angiographic disease. The RCA is the dominant vessel. Slow flow noted on initial RCA angiogram. Description of Procedure: Informed consent signed and placed in the chart. Patient transferred to label pinker room. Prepped and draped in usual sterile fashion. 2% lidocaine injected subcutaneously in right wrist area. 22-gauge venipuncture catheter used to access the right radial artery under ultrasound guidance. 6-FR slender sheath placed in right radial artery. Nitroglycerine and Verapamil were given intraarterial through the sheath. Versacore wire advanced under fluoroscopy 5F Tig 4 diagnostic catheter engaged Left Main Coronary Artery. 5F Tig 4 diagnostic catheter engaged Right Coronary Artery Multiple orthogonal angiogram obtained and reviewed Hemostasis was achieved by application of TR band. Post Operative Condition: Stable No significant blood loss Disposition: Home Plan: The patient will be monitored in the recovery area. Continue aggressive medical therapy and risk factor modification. ? Virgilio Edward M.D. Interventional Cardiology
== END 2023-07-13 13:15 | disposition home or self-care (01) ==
PROVIDERS: PCP Internal Medicine; Visit Provider Internal Medicine
PROC: (CPT 93454; principal; 2023-07-13 08:30)
DX: I25.10 Atherosclerotic heart disease of native coronary artery without angina pectoris (principal); R07.9 Chest pain, unspecified; J45.909 Unspecified asthma, uncomplicated; K21.9 Gastro-esophageal reflux disease without esophagitis; I10 Essential (primary) hypertension
CPT/HCPCS: 36415; 80048; 85025; 93454; A9270; C1769; C1887; C1894; J1644; J2250; J2305; J3010; J7040

== ENCOUNTER 2024-03-28 14:33 | Outpatient (CLI) | payer MEDICARE, SELFPAY ==
--- NOTE | ~2024-03-28 | CT_ITS ---
EXAMINATION: CT abdomen pelvis wo/w con DATE: 03/28/2024 15:25 INDICATION: Flank pain TECHNIQUE: Computed tomography (CT) of the abdomen and pelvis was performed without intravenous contr ast. CT of the abdomen and pelvis was then performed with a total of 130 mL Omnipaque-350 intravenous contrast using a double-bolus technique for simultaneous opacification of the renal parenchyma and r enal collecting system. Automated exposure control and iterative reconstruction technique were employ ed. The dose-length product was 776.78 mGy-cm. COMPARISON: None FINDINGS: Couple left lower lobe nodules the larger measuring 4 mm. Atelectasis at the medial aspect of the aletha ateral lower lobes along side a moderate-sized sliding-type hiatal hernia. Visualized inferior heart is normal. No pericardial or pleural effusion. Multiple splenic calcifications and and single hepatic calcification consistent with old granulomatous disease. Postoperative change of prior left nephrect jalen with surgical clips at the left renal fossa. Gallbladder, pancreas, bilateral adrenal glands and right kidney are normal. The distal right ureter remains decompressed and unopacified with contrast o n the delayed images. No evident filling defects or urothelial irregularities along the contrast opac ified portions of the right renal collecting system and ureter. Partially decompressed bladder is nor mal. Bowels are unremarkable with no wall thickening or obstruction. The uterus is not identified and has likely been surgically resected. Bilateral adnexa are unremarkable. No free intraperitoneal gas or fluid. No pathologically enlarged abdominal or pelvic lymphadenopathy. Chronic T12 compression fra cture with prior vertebroplasty. Moderate to severe disc height loss with degenerative endplate hayden es at L1-L2. Otherwise mild lumbar and lower thoracic spondylosis. IMPRESSION: 1. Status post left nephrectomy. No right-sided urolithiasis or acute intra-abdominal/pelvic process. 2. Moderate-sized sliding-type hiatal hernia. Reviewed, dictated and finalized at location B. ING METER ATTENDANT IMPRESSION: 1. Status post left nephrectomy. No right-sided urolithiasis or acute intra-abd ominal/pelvic process. 2. Moderate-sized sliding-type hiatal hernia.
[2024-03-28 14:59] LABS: Estimated Glomerular Filt Rate 44
== END 2024-03-28 14:34 | disposition home or self-care (01) ==
PROVIDERS: PCP Urology
DX: R10.9 Unspecified abdominal pain (principal); K44.9 Diaphragmatic hernia without obstruction or gangrene
CPT/HCPCS: 74178; Q9967

== ENCOUNTER 2024-04-20 12:19 | Outpatient (CLI) | payer MEDICARE, SELFPAY ==
[2024-04-20 12:54] LABS: Hematocrit 40.1 % (37.0-47.0); Mean Corpuscular HGB Conc 32.4 g/dl (32-36); Mean Corpuscular Hemoglobin 26.7 pg (26-34); Mean Corpuscular Volume 82.3 fl (80-100); Mean Platelet Volume 11.2 fl (7.4-10.4); Platelet Count Result 276 k/mm3 (150-375); Red Blood Count 4.87 M/mm3 (4.2-5.4); Red Cell Distribution Width 13.2 % (11.5-14.5); White Blood Count 5.2 K/mm3 (4.5-10.0)
[2024-04-20 13:10] LABS: Alanine Aminotransferase 19 U/L (6-35); Albumin Level 4.5 g/dL (3.5-5.1); Alkaline Phosphatase 91 U/L (38-126); Anion Gap 5 mmol/L (4-12); Aspartate Amino Transferase 28 U/L (14-36); Bilirubin,Total 0.7 mg/dL (0.2-1.3); Blood Urea Nitrogen 16 mg/dL (7-17); Calcium 9.1 mg/dL (8.4-10.2); Carbon Dioxide 25 mmol/L (22-30); Chloride 106 mmol/L (98-107); Cholesterol 264 mg/dL (0-200); Estimated Glomerular Filt Rate 48; Glucose 86 mg/dL (65-110); HDL Direct 97 mg/dL; Potassium 4.3 mmol/L (3.4-5.0); Sodium 136 mmol/L (137-145); Triglycerides 111 mg/dL (<150)
[2024-04-20 13:21] LABS: LDL Cholesterol Direct 108 mg/dL
[2024-04-20 13:26] LABS: Vitamin D 25 Hydroxy 31.6 ng/mL
== END 2024-04-20 12:20 | disposition home or self-care (01) ==
LOC: ANHLAB 12:21
PROVIDERS: PCP Internal Medicine; Visit Provider Internal Medicine
DX: E78.5 Hyperlipidemia, unspecified (principal); E55.9 Vitamin D deficiency, unspecified; Z79.899 Other long term (current) drug therapy
CPT/HCPCS: 36415; 80053; 80061; 82306; 84443; 85027

== ENCOUNTER 2024-04-25 13:30 | Outpatient (CLI) | payer MEDICARE, SELFPAY ==
--- NOTE | ~2024-04-25 | MR_ITS ---
EXAMINATION: MR lumbar spine wo con DATE: 04/25/2024 14:03 INDICATION: Lumbar radiculopathy. TECHNIQUE: Magnetic resonance imaging (MRI) of the lumbar spine was performed without intravenous con trast. COMPARISON: Lumbar spine MRI 01/20/2022 FINDINGS: There is 6 degrees dextrocurvature of lumbar spine. There is a chronic burst fracture of L1 with changes of vertebroplasty and mild focal kyphosis. There is 4 mm retrolisthesis of L1 on L2 and 3 mm retrolisthesis of L2 on L3. There is mild chronic anterior wedging of L1 vertebral body. There is severely decreased disc height at L1-L2. The distal spinal cord signal intensity is normal. The co nus medullaris is at L1. 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 The following disc levels are sp ecifically discussed: L1-L2: The disc is bulging and has an annular fissure. There is mild bilateral facet joint osteoarthr itis. There is mild right and mild left neural foraminal stenosis. There is mild central canal stenos is. L2-L3: The disc is bulging and has an annular fissure. There is mild right and moderate left facet leena int osteoarthritis. There is mild right and moderate left neural foraminal stenosis. There is mild ce ntral canal stenosis. L3-L4: The disc is bulging. There is moderate bilateral facet joint osteoarthritis. There is mild aletha ateral neural foraminal stenosis. There is mild central canal stenosis. L4-L5: The disc is bulging. There is severe right and moderate left facet joint osteoarthritis. There is mild bilateral neural foraminal stenosis. There is mild central canal stenosis. L5-S1: The disc is bulging. There is severe bilateral facet joint osteoarthritis. There is mild bilat eral neural foraminal stenosis. There is mild central canal stenosis. IMPRESSION: 1. Severe lumbar spondylosis with interval worsening at L1-L2. Reviewed, dictated and finalized at location A. ATCH OFFICER
== END 2024-04-25 13:31 | disposition home or self-care (01) ==
LOC: MICIMG 13:30
PROVIDERS: PCP Urology; Visit Provider Pain Medicine Pain Medicine
DX: M47.26 Other spondylosis with radiculopathy, lumbar region (principal)
CPT/HCPCS: 72148